=== PATIENT | female | born 1960 | race Two or more races ===

== ENCOUNTER → 2023-02-16 | Outpatient (CLI) | payer BC ==
[~2023-02-16] MED LIST: ALBUTEROL SULF 2.5 MG/0.5ML(0.5%) NEB SOLN ONE
== END | disposition home or self-care (01) ==
LOC: RT 10:19
PROVIDERS: ATTEND Internal Medicine Pulmonary Disease
DX: R06.02 Shortness of breath (principal)
CPT/HCPCS: 94060; 94727; 94729

== ENCOUNTER 2024-10-19 03:05 | Inpatient (IN) | payer MEDICARE, BC ==
[~2024-10-19] VITALS: Ht 167.6 cm; Wt 103.5 kg
--- NOTE | 2024-10-19 03:31 | ED.PDOC ---
GI ASSESSMENT HPI Comments 64-year-old female who came to emergency room for abdominal pain. Patient states she is constipated, last bowel movement was over 2 days ago, described as scanty and hard. Yesterday she started having constant, aching periumbilical abdominal pain, associated with bouts of nausea and vomiting, unable to keep an ything in. States she has not been able to pass any gas as well. She is status post hysterectomy. Chief Complaint: Abdominal pain Time Seen by MD: 03:30 Reviewed Notes: Nurses Notes Allergies: Coded Allergies: Codeine (Verified Allergy, Unknown, 10/19/24) Home Meds Reported Medications Atenolol (Atenolol) 25 Mg Tab, 1 TAB PO DAILY 10/19/24 Levothyroxine Sodium (Levothyroxine Sodium) 125 Mcg Tab, 1 TAB PO DAILY 10/19/24 Information Source: Patient, Spouse Mode of Arrival: Ambulatory Timing: Hours Duration: Since onset Quality: Aching Vomitus: Watery Stool: Impaction Severity: Moderate Recent: None Recent Hx of: Abdominal Surgery Pain Location: Periumbilical Associated sign and symptoms: Nausea, Vomiting, Constipation, Abdominal Pain Review of Systems REVIEW OF SYSTEMS: No fever, no chills, or fatigue HEENT: No sore throat, no earache, no congestion, no neck pain. Cardiac: No chest pain. No palpitations. Lungs: No shortness of breath, no cough. GI: (+) nausea, (+) vomiting, no diarrhea, (+) constipation, (+) abdominal pain : No dysuria, frequency, or urgency. No hematuria. Musculoskeletal: No joint pain , no joint swelling, no extremity edema. Skin: No rash, no itching. Neuro: No headache, no dizziness, no weakness Vital Signs Vital Signs Date Time Temp Pulse Resp B/P (MAP) Pulse Ox O2 Delivery O2 Flow Rate FiO2 10/19/24 07:36 86 17 96 Room Air 10/19/24 07:36 98.7 143/64 (90) 98.7 10/19/24 05:24 0 21 Physical Exam General: Awake, alert and oriented. No acute distress. Skin: Skin in warm, dry and intact. Appropriate color for ethnicity. Nailbeds pink with no cyanosis. HEENT: The head is normocephalic and atraumatic. Conjunctivae are clear without exudates or hemorrhage. Sclera is non-icteric. EOM are intact. No signs of nystagmus. Eyelids are normal in appearance without swelling or lesions. Oral mucosa is pink and moist Neck: The neck is supple with normal range of motion. No JVD. Cardiac: Heart rate and rhythm are normal. No murmurs, gallops, or rubs are auscultated. Respiratory: No signs of respiratory distress. Lung sounds are clear in all lobes bilaterally without rales, rhonchi, or wheezes. Abdominal: Abdomen is soft, generally-tender without distention, guarding or rigidity. Bowel sounds are present and normoactive in all four quadrants. Extremities: Upper and lower extremities are atraumatic in appearance without deformity or edema. Neurological: The patient is awake, alert and oriented to person, place, and time with normal speech. Speech is clear. There is no facial asymmetry. Psychiatric: Appropriate mood and affect. Good judgement and insight. No visual or auditory hallucinations. Past Medical History PAST MEDICAL HISTORY: HTN, Thyroid Surgical History: Hysterectomy INSIGHTS ANALYST History: Denies all INSIGHTS ANALYST Hx Family History Family History: Reviewed,noncontributory to illness Social History Smoker: Non-Smoker Alcohol: Denies ETOH Use Drugs: Denies Drug Use Lives In: Home Was a procedure done? Was a procedure done?: No GI differential Dx Differential Diagnosis: Bowel Obstruction, Constipation, Diverticular disease, Gastritis/PUD, Gastroenteritis, UTI, Urolithiasis, Other X-Ray, Labs, Meds, VS Vital Signs Date Time Temp Pulse Resp B/P (MAP) Pulse Ox O2 Delivery O2 Flow Rate FiO2 10/19/24 07:36 86 17 96 Room Air 10/19/24 07:36 98.7 86 17 143/64 (90) 96 98.7 10/19/24 05:39 94 16 142/49 10/19/24 05:24 88 16 97 Room Air* 0 21 10/19/24 05:24 88 16 97 Room Air* 0 21 10/19/24 05:09 88 16 131/65 10/19/24 04:56 99.8 88 16 131/65 (87) 97 99.8 10/19/24 03:55 98.3 92 20 152/71 (98) 92 98.3 Lab Test 10/19/24 03:52 6/20/25 03:25 10/19/24 00:00 Range/Units Lactic Acid Level 1.9 0.4-2.0 mmol/L White Blood Count 16.9 H 4.4-10.8 10^3/uL Red Blood Count 5.37 H 4.0-5.20 10^6/uL Hemoglobin 14.8 12.2-16.2 g/dL Hematocrit 43.4 36.0-46.0 % Mean Corpuscular Volume 80.8 80.0-100.0 fL Mean Corpuscular Hemoglobin 27.5 L 28.0-32.0 pg Mean Corpuscular Hemoglobin Concent 34.0 32.0-36.0 g/dL Red Cell Distribution Width 13.1 11.8-14.3 % Platelet Count 228 140-450 10^3/uL Mean Platelet Volume 8.3 6.9-10.8 fL Neutrophils (%) (Auto) 90.2 H 37.0-80.0 % Lymphocytes (%) (Auto) 4.3 L 10.0-50.0 % Monocytes (%) (Auto) 5.3 0.0-12.0 % Eosinophils (%) (Auto) 0.0 0.0-7.0 % Basophils (%) (Auto) 0.2 0.0-2.0 % Neutrophils # (Auto) 15.2 H 1.6-8.6 10 ^3/uL Lymphocytes # (Auto) 0.7 0.4-5.4 10 ^3/uL Monocytes # (Auto) 0.9 0-1.3 10 ^3/uL Eosinophils # (Auto) 0 0-0.8 10 ^3/uL Basophils # (Auto) 0 0-0.2 10 ^3/uL Nucleated Red Blood Cells 0.0 % Sodium Level 140 136-145 mmol/L Potassium Level 3.8 3.5-5.1 mmol/L Chloride Level 105 98-107 mmol/L Carbon Dioxide Level 24 20-31 mmol/L Anion Gap 11 5-15 Blood Urea Nitrogen 10 9-23 mg/dL Creatinine 0.72 0.550-1.02 mg/dL Glomerular Filtration Rate Calc 93 >90 mL/min BUN/Creatinine Ratio 13.9 10.0-20.0 Serum Glucose 211 H 74-106 mg/dL Hemoglobin A1c 5.8 H <5.7 % A1C Calcium Level 9.9 8.7-10.4 mg/dL Total Bilirubin 1.0 0.2-1.0 mg/dL Aspartate Amino Transferase (AST) 17 <34 U/L Alanine Aminotransferase (ALT) 26 7-40 U/L Alkaline Phosphatase 98 46-116 U/L Total Protein 7.6 5.7-8.2 g/dL Albumin 5.0 H 3.2-4.8 g/dL Amylase Level 34 30-118 U/L Lipase 26 12-53 U/L Urine Color Yellow Yellow Urine Clarity Clear Clear Urine pH 5.5 5.0-9.0 Urine Specific [place] > 1.050 H 1.001-1.035 Urine Protein Trace H Negative Urine Ketones 1+ H Negative Urine Blood Negative Negative /uL Urine Nitrite Negative Negative Urine Bilirubin Negative Negative Urine Urobilinogen Normal Negative mg/dL Urine Leukocyte Esterase Negative Negative /uL Urine RBC 1 0 - 4 /hpf Urine Microscopic WBC 2 0-5 /HPF Urine Squamous Epithelial Cells Few <5 /hpf Urine Bacteria None seen None Seen /hpf Urine Mucus Few None Seen Urine Glucose Trace Normal mg/dL Urine Test Negative Negative Current Medications Medications (Trade) Dose Ordered Sig/Samantha Route Start Time Stop Time Status Last Admin Sodium Chloride 1,000 ml @ 1,000 mls/hr Q1H ONCE IV 10/19/24 03:45 10/19/24 04:44 DC 10/19/24 04:51 Ondansetron HCl (Zofran) 4 mg ONCE ONCE IV 10/19/24 03:45 10/19/24 03:46 DC 10/19/24 04:53 Morphine Sulfate 2 mg ONCE ONCE IV 10/19/24 05:00 10/19/24 05:01 DC 10/19/24 05:09 Metronidazole 100 ml @ 100 mls/hr ONCE ONCE IV 10/19/24 05:45 10/19/24 06:44 DC 10/19/24 05:40 Levofloxacin/ Dextrose 100 ml @ 100 mls/hr ONCE ONCE IV 10/19/24 05:45 10/19/24 06:44 DC 10/19/24 06:52 Sodium Chloride 1,000 ml @ 1,000 mls/hr Q1H ONCE IV 10/19/24 07:00 10/19/24 07:59 DC 10/19/24 08:03 Ondansetron HCl (Zofran) 4 mg ONCE ONCE IV 10/19/24 07:00 10/19/24 07:09 DC 10/19/24 07:42 Time of 1ST Reevaluation: 03:24 Reevaluation 1ST: Unchanged Patient Education/Counseling: Prognosis Family Education/Counseling: Prognosis SEPSIS Sepsis Screen Physician Orders Ct Ab Pel With Iv Con Only (10/19/24 03:37) Gallbladder (10/19/24 08:57) Vital Signs Date Time Temp Pulse Resp B/P (MAP) Pulse Ox O2 Delivery O2 Flow Rate FiO2 10/19/24 07:36 86 17 96 Room Air 10/19/24 07:36 98.7 86 17 143/64 (90) 96 98.7 10/19/24 05:39 94 16 142/49 10/19/24 05:24 88 16 97 Room Air* 0 21 10/19/24 05:24 88 16 97 Room Air* 0 21 10/19/24 05:09 88 16 131/65 10/19/24 04:56 99.8 88 16 131/65 (87) 97 99.8 10/19/24 03:55 98.3 92 20 152/71 (98) 92 98.3 Laboratory Tests Test 10/19/24 03:25 10/19/24 03:52 White Blood Count 16.9 10^3/uL (4.4-10.8) H Lactic Acid Level 1.9 mmol/L (0.4-2.0) Medications Medications Dose Ordered Sig/Samantha Route Start Time Stop Time Status Last Admin Dose Admin Ondansetron HCl 4 mg ONCE ONCE IV 10/19/24 07:00 10/19/24 07:09 DC 10/19/24 07:42 Sodium Chloride 1,000 ml @ 1,000 mls/hr Q1H ONCE IV 10/19/24 07:00 10/19/24 07:59 DC 10/19/24 08:03 Departure 1 Departure Time of Disposition: 05:32 Impression: Primary Impression: Nausea & vomiting Additional Impressions: Leukocytosis Intractable abdominal pain Acute cholecystitis Disposition: ADMITTED INPATIENT Condition: Stable Comments 64-year-old female who presented with nausea, vomiting, abdominal pain. Patient is still reporting significant abdominal pain and nausea after treatment in the ED. Patient admitted to hospitalist service for further treatment, evaluation and monitoring. CT scan concerning for acute cholecystitis. Antibiotics initiated in the [facility] department. Stat Consultation with general surgery placed in the emergency department. Extensive evaluation was performed in attempt to identify or rule out: (See differential diagnosis section) The following tests were ordered, and results were reviewed by me and discussed with patient: (See diagnostic results section) The following test were independently interpreted by me: N/A I reviewed and agreed with the following test results read by other providers: N/A I reviewed the following notes from the pt's past medical encounters: N/A Additional information was gathered from interviewing the following independent historians: Patient's at bedside Discussion of management or test interpretation with external physician/other qualified health medical care administrator: N/A Decision regarding hospitalization or escalation of hospital level of care: Risk and benefits of admission for further treatment of patient's condition was considered. Due to patient's current clinical condition, high risk of decline and poor outcome if discharged and need for further inpatient management and monitoring, patient will be admitted to the hospital. Discussed with patient. Drug therapy requiring intensive monitoring for toxicity: N/A Parenteral controlled substances: IV morphine Decision regarding elective major surgery with identified patient or procedure risk factors: N/A Decision regarding emergency major surgery: N/A Decision not to resuscitate or to de-escalate care because of poor prognosis: N/A Diagnosis or treatment significantly limited by social determinants of health: N/A Critical Care Note Critical Care Time?: No Stability Stability form required: No Heart Score Heart Score: Heart Score Response (Comments) Value History N/A 0 EKG N/A 0 Age N/A 0 Risk Factors N/A 0 Troponin N/A 0 Total 0 I personally scribed for CATIA CHASE MD ([email or web address]) on 10/19/24 at 03:31. Electronically submitted by Herbie Low ([email or web address]). CATIA CHASE MD Oct 19, 2024 03:31
[2024-10-19 03:49] LABS: Basophils # (auto) 0 10 ^3/uL (0-0.2); Basophils % (auto) 0.2 % (0.0-2.0); Eosinophils # (auto) 0 10 ^3/uL (0-0.8); Hematocrit 43.4 % (36.0-46.0); Hemoglobin 14.8 g/dL (12.2-16.2); Lymphocytes # (auto) 0.7 10 ^3/uL (0.4-5.4); Lymphocytes % (auto) 4.3 % (10.0-50.0); Mean Corpuscular Hemoglobin 27.5 pg (28.0-32.0); Mean Corpuscular Volume 80.8 fL (80.0-100.0); Monocytes # (auto) 0.9 10 ^3/uL (0-1.3); Monocytes % (auto) 5.3 % (0.0-12.0); Neutrophils # (auto) 15.2 10 ^3/uL (1.6-8.6); Neutrophils % (auto) 90.2 % (37.0-80.0); Platelet Count (auto) 228 10^3/uL (140-450); Red Blood Cells 5.37 10^6/uL (4.0-5.20); Red Cell Distribution Width 13.1 % (11.8-14.3); White Blood Cell 16.9 10^3/uL (4.4-10.8)
[2024-10-19 04:01] LABS: Alanine Aminotransferase 26 U/L (7-40); Alkaline Phosphatase 98 U/L (46-116); Anion Gap 11 (5-15); Aspartate Aminotransferase 17 U/L (<34); BUN/Creatinine Ratio 13.9 (10.0-20.0); Blood Urea Nitrogen 10 mg/dL (9-23); Calcium 9.9 mg/dL (8.7-10.4); Carbon Dioxide 24 mmol/L (20-31); Chloride 105 mmol/L (98-107); Lipase 26 U/L (12-53); Potassium 3.8 mmol/L (3.5-5.1); Sodium 140 mmol/L (136-145); Total Protein 7.6 g/dL (5.7-8.2)
[2024-10-19 04:02] LABS: Glucose 211 mg/dL (74-106)
[2024-10-19] MEDS: SODIUM CHLORIDE 0.9% 1,000 ML IV ONE ×2 (04:51→08:03)
[2024-10-19] MEDS: ONDANSETRON HCL 4 MG/2 ML VIAL IV ONE ×2 (04:53→07:42)
[2024-10-19] MEDS: MORPHINE SULFATE INJ 2 MG/ml SYRG IV ONE (05:09)
[2024-10-19] MEDS: IOHEXOL 300 MG/ML 100ML BOTTLE IJ ONE (05:10)
[2024-10-19 05:24] VITALS: PULSE 88; RESP 16; O2SAT 97
--- NOTE | 2024-10-19 05:35 | DVH ---
EXAM: CT Abdomen and Pelvis With Intravenous Contrast CLINICAL INDICATION: Pain TECHNIQUE: Axial computed tomography images of the abdomen and pelvis with intravenous contrast. Th is CT exam was performed using one or more of the following dose reduction techniques: automated exp osure control, adjustment of the mA and/or kV according to patient size, and/or use of iterative lenin nstruction technique. COMPARISON: No relevant prior studies available. FINDINGS: LUNG BASES: Unremarkable. No mass. No consolidation. ABDOMEN: LIVER: Unremarkable. No mass. GALLBLADDER AND BILE DUCTS: Distended gallbladder apparent pericholecystic fluid and wall thickening presented for acute cholecystitis. Possible small air pocket within the urinary bladder. Emphysema tous acute ascites cannot be excluded. Clinical correlation is recommended. No ductal dilation. PANCREAS: Unremarkable. No mass. No ductal dilation. SPLEEN: Unremarkable. No splenomegaly. ADRENALS: Unremarkable. No mass. KIDNEYS AND URETERS: 4.5 cm simple left renal cysts. No hydronephrosis. STOMACH AND BOWEL: Fecal retention in the colon consistent with constipation. Colonic diverticulosi s without acute diverticulitis. No obstruction. PELVIS: APPENDIX: No findings to suggest acute appendicitis. BLADDER: See above. REPRODUCTIVE: Unremarkable as visualized. ABDOMEN and PELVIS: INTRAPERITONEAL SPACE: See above. BONES/JOINTS: No acute fracture. No dislocation. SOFT TISSUES: Umbilical hernia containing fat. VASCULATURE: Unremarkable. No abdominal aortic aneurysm. LYMPH NODES: Unremarkable. No enlarged lymph nodes. IMPRESSION: 1. Distended gallbladder apparent pericholecystic fluid and wall thickening presented for acute chol ecystitis. Possible small air pocket within the urinary bladder. Emphysematous acute ascites cannot be excluded. Clinical correlation is recommended. 2. Umbilical hernia containing fat. 3. Fecal retention in the colon consistent with constipation. 4. Colonic diverticulosis without acute diverticulitis.
[2024-10-19] MEDS: metroNIDAZOLE 500MG/100ML 100 ML IV ONE (05:40)
[2024-10-19] MEDS: levoFLOXacin 500MG 100 ML IV ONE (06:52)
[2024-10-19] MEDS: MORPHINE SULFATE 4 MG/ML SYR/VIAL IV ONE (07:00)
[2024-10-19] MEDS ORDERED: DEXTROSE (50%) 50ML SYRG IV PRN (09:15)
[2024-10-19] MEDS ORDERED: LEVO125T7 PO (09:16)
[2024-10-19] MEDS ORDERED: ATEN25TA PO (09:16)
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
[2024-10-19] MEDS ORDERED: levoFLOXacin 500MG 100 ML IV SCH (10:00)
--- NOTE | 2024-10-19 10:00 | DVH ---
INDICATION: r/o kevin TECHNIQUE: Multiple real-time sonographic images were obtained of the right upper quadrant. COMPARISON: None FINDINGS: The liver demonstrates homogeneous echotexture without focal mass lesions. The liver measu res 21.2 cm. There is no intrahepatic or extrahepatic ductal dilatation. The common duct measures 0.9 cm. Cholelithiasis The gallbladder wall measures 1.5 cm and is within normal limits. The right kidney measures 11.4 cm. The right kidney is normal in contour, size, and shape. The echoge nicity is normal. There is no hydronephrosis. The pancreas is not well visualized due to overlying bowel gas. IMPRESSION: Hepatomegaly. Cholelithiasis and thickened gallbladder wall. Dilated common bile duct.
[2024-10-19] MEDS: SODIUM CHLORIDE 0.9% 1,000 ML IV SCH (11:14)
[2024-10-19] MEDS: ATENOLOL 25 MG TAB PO SCH (11:18)
[2024-10-19] MEDS: ONDANSETRON HCL 4 MG/2 ML VIAL IV PRN (11:21)
[2024-10-19] MEDS: MORPHINE SULFATE INJ 2 MG/ml SYRG IV PRN (11:28)
[2024-10-19] MEDS: ACCU-CHEK COMFORT CURVE STRIP VI SCH (12:39)
[2024-10-19] MEDS: InsuLIN REG 1unit/0.01ml Soln (100units/ml) SC SCH (13:05)
[2024-10-19] MEDS: PIPERACILLIN-TAZOB 3.375GM 100 ML IV SCH (14:13)
[2024-10-19 15:31] LABS: Urine Bacteria None Seen /hpf (None Seen)
[2024-10-19 15:40] LABS: Urine Blood Negative /uL (Negative); Urine Clarity Clear (Clear); Urine Color Yellow (Yellow); Urine Mucus FEW (None Seen); Urine Protein, UAD TRACE (Negative); Urine Squamous Epithelial Cell FEW /hpf (<5); Urine Urobilinogen Normal (Negative); Urine WBC 2 /HPF (0-5); Urine pH 5.5 (5.0-9.0)
[2024-10-19 15:44] LABS: Urine Specific Gravity > 1.050 (1.001-1.035)
[2024-10-19 18:15] VITALS: BP 147/70; PULSE 78; RESP 17; TEMP 97.8; O2SAT 97
[2024-10-19 18:30] VITALS: PULSE 78; RESP 17; O2SAT 97
[2024-10-19 20:00] VITALS: PULSE 91; RESP 17; O2SAT 94
[2024-10-19 21:00] VITALS: BP 121/45; PULSE 86; RESP 18; TEMP 98.6; O2SAT 91
[2024-10-20] VITALS (8 sets, daily range): BP systolic 113–135; BP diastolic 48–65; PULSE 80–93; RESP 16–20; TEMP 98–99.4; O2SAT 93–94
[2024-10-20 06:47] LABS: Basophils # (auto) 0 10 ^3/uL (0-0.2); Eosinophils # (auto) 0 10 ^3/uL (0-0.8); Hematocrit 40.4 % (36.0-46.0); Hemoglobin 13.5 g/dL (12.2-16.2); Lymphocytes # (auto) 0.6 10 ^3/uL (0.4-5.4); Lymphocytes % (auto) 3.3 % (10.0-50.0); Mean Corpuscular Hemoglobin 27.4 pg (28.0-32.0); Mean Corpuscular Hgb Conc. 33.5 g/dL (32.0-36.0); Mean Corpuscular Volume 81.8 fL (80.0-100.0); Monocytes % (auto) 5.7 % (0.0-12.0); Neutrophils # (auto) 16.5 10 ^3/uL (1.6-8.6); Platelet Count (auto) 169 10^3/uL (140-450); Red Blood Cells 4.94 10^6/uL (4.0-5.20); Red Cell Distribution Width 13.6 % (11.8-14.3); White Blood Cell 18.1 10^3/uL (4.4-10.8)
[2024-10-20 07:02] LABS: Alkaline Phosphatase 116 U/L (46-116); Anion Gap 10 (5-15); BUN/Creatinine Ratio 16.7 (10.0-20.0); Blood Urea Nitrogen 12 mg/dL (9-23); Carbon Dioxide 25 mmol/L (20-31); Chloride 105 mmol/L (98-107); Potassium 3.6 mmol/L (3.5-5.1); Sodium 140 mmol/L (136-145); Total Protein 6.2 g/dL (5.7-8.2)
[2024-10-20 07:05] LABS: Alanine Aminotransferase 203 U/L (7-40); Aspartate Aminotransferase 116 U/L (<34); Bilirubin, Total 1.6 mg/dL (0.2-1.0); Glucose 127 mg/dL (74-106)
[2024-10-20] MEDS: LEVOTHYROXINE SODIUM 100 MCG TAB PO SCH (09:16)
[2024-10-20] MEDS: LEVOTHYROXINE SODIUM 25 MCG TAB PO SCH (09:16)
--- NOTE | 2024-10-20 09:36 | DVH ---
MRI MRCP MRI HISTORY: dilated common bile duct on ultrasound of liver COMPARISON: None PROCEDURE: Multiplanar multisequence MRI images were obtained of the abdomen without intravenous cont rast Additional MIPS were obtained of the biliary system. FINDINGS: Bile ducts: -Intrahepatic ducts: Non-dilated. -Extrahepatic ducts: Non-dilated. -Common bile duct: Non-dilated. -Filling defects: No filling defects -Stricture: None. Gallbladder: Multiple gallstones. Pancreas: Pancreatic duct: No ductal dilatation. Lesions: None. Liver: Signal intensity: Homogenous. Contour: Smooth. Size: Normal. Lesions: No focal liver lesion. ADDITIONAL FINDINGS: Lung base: Right basilar atelectasis is visualized. Pancreas: Normal. Spleen:Normal. Bowel: Normal. Adrenal glands:Normal. Kidneys and ureters: 5.0 cm cyst in the left renal pelvis. Trace bilateral perinephric edema is seen. Lymph nodes: Mildly prominent portal hepatitis lymph nodes likely reactive. Peritoneum:Normal. Vessels: Normal. Abdominal wall: Normal. Bone: No aggressive bone lesions IMPRESSION: Cholelithiasis with pericholecystic edema could be seen with acute cholecystitis. Small defects are s een in the gallbladder wall, clinical correlation for gangrenous cholecystitis. No filling defects to suggest for choledocholithiasis.
[2024-10-20] MEDS: ACETAMINOPHEN 325 MG TAB PO PRN (11:07)
[2024-10-20] MEDS: levoFLOXacin 500MG 100 ML IV SCH (11:07)
--- NOTE | 2024-10-20 12:36 | DVHPN2 ---
Reviewed: Care Plan, H&P, Labs, Medications, Previous Orders, Radiology Changes from previous H/P or p: No Changes Gastrointestinal: Nausea, Vomiting, Abdominal Pain Objective Vitals Vital Signs Date Time Temp Pulse Resp B/P (MAP) Pulse Ox O2 Delivery O2 Flow Rate FiO2 10/20/24 09:17 120/47 10/20/24 09:00 99.4 84 16 93 99.4 10/20/24 08:00 Nasal Cannula* 2 28 Intake/Output Intake and Output 10/20/24 07:00 Intake Total 900 ml Balance 900 ml Intake Oral 0 ml IV Total 900 ml # Voids 2 Medications Current Medications Medications Dose Ordered Sig/Samantha Route Start Time Stop Time Status Last Admin Dose Admin Acetaminophen/ Hydrocodone Bitart 1 tab Q4HP PRN PO 10/19/24 09:15 Ondansetron HCl 4 mg Q4HP PRN IV 10/19/24 09:15 10/19/24 11:21 4 MG Acetaminophen 650 mg Q6HP PRN PO 10/19/24 09:15 10/20/24 11:07 650 MG Morphine Sulfate 2 mg Q4HPRN PRN IV 10/19/24 09:15 10/19/24 21:40 2 MG Diagnostic Test (Pha) 1 strip Q6HR 10/19/24 12:00 10/20/24 11:31 1 STRIP Insulin Human Regular Q6HR SC 10/19/24 12:00 10/20/24 05:27 2 UNITS Dextrose 50 ml UD PRN IV 10/19/24 09:15 Piperacillin Sod/ Tazobactam Sod 100 ml @ 25 mls/hr Q8HR IV 10/19/24 14:00 10/20/24 05:09 25 MLS/HR Atenolol 25 mg DAILY PO 10/19/24 10:00 10/19/24 11:18 25 MG Levothyroxine Sodium 25 mcg DAILY PO 10/20/24 10:00 10/20/24 09:16 25 MCG Levothyroxine Sodium 100 mcg DAILY PO 10/20/24 10:00 10/20/24 09:16 100 MCG Levofloxacin/ Dextrose 100 ml @ 100 mls/hr DAILY IV 10/20/24 10:00 10/20/24 11:07 100 MLS/HR Laboratory Results Laboratory Tests 10/20/24 05:55 Chemistry Test 10/20/24 05:55 Albumin 4.0 g/dL (3.2-4.8) Calcium Level 9.0 mg/dL (8.7-10.4) Total Protein 6.2 g/dL (5.7-8.2) Coagulation Test 10/20/24 11:45 Prothrombin Time Pending Prothrombin Time INR Pending Activated Partial Thromboplast Time Pending LFT Test 10/20/24 05:55 Alanine Aminotransferase (ALT) 203 U/L (7-40) H Alkaline Phosphatase 116 U/L (46-116) Aspartate Amino Transferase (AST) 116 U/L (<34) H Total Bilirubin 1.6 mg/dL (0.2-1.0) H Urinalysis Test 10/19/24 00:00 Urine Color Yellow (Yellow) Urine Clarity Clear (Clear) Urine pH 5.5 (5.0-9.0) Urine Specific [place] > 1.050 (1.001-1.035) Urine Protein Trace (Negative) H Urine Ketones 1+ (Negative) H Urine Blood Negative /uL (Negative) Urine Nitrite Negative (Negative) Urine Bilirubin Negative (Negative) Urine Urobilinogen Normal mg/dL (Negative) Urine Leukocyte Esterase Negative /uL (Negative) Urine RBC 1 /hpf (0 - 4) Urine Microscopic WBC 2 /HPF (0-5) Urine Squamous Epithelial Cells Few /hpf (<5) Urine Bacteria None seen /hpf (None Seen) Urine Mucus Few (None Seen) Urine Glucose Trace mg/dL (Normal) Urine Test Negative (Negative) Labs and/or images reviewed: Labs reviewed by me, Image(s) reviewed by me Assessment/Plan Assessment/Plan Sepsis secondary to cholecystitis: Pilo Banda Acute cholecystitis: Surgical consult by Dr. Ronald Rizzo Acute abdominal pain Hypertension Hypothyroidism Consult for cardiac clearance Acute Dehydration: IV fluids Plan discussed with: Patient Date of Service: Oct 20, 2024 Billing Provider: GERALDINE GASPAR MD Common Visit Codes: [id number] INP/OBS CARE(HIGH) GERALDINE GASPAR MD Oct 20, 2024 12:36
[2024-10-20 12:44] LABS: INR 1.34 (0.9-1.15); Partial Thromboplastin Time 31.5 SEC (24.5-34.5); Prothrombin Time 13.8 sec (9.3-11.8)
[2024-10-20] MEDS: D5W/SOD CHL 0.45%/KCL 20MEQ 1,000 ML IV ONE (13:00)
--- NOTE | 2024-10-20 14:54 | DVH ---
CHEST RADIOGRAPH Indication: PRE OP Technique: Frontal and lateral view of the chest was obtained Comparison: None FINDINGS: Lines and Tubes: None Lungs: Bibasilar subsegmental atelectasis Pleura: No effusion. No pneumothorax. Cardiomediastinal contours: Unremarkable Bones: Unremarkable IMPRESSION: Bibasilar subsegmental atelectasis
[2024-10-20] MEDS: HYDROcodone-ACET 5/325MG TAB PO PRN (16:12)
--- NOTE | 2024-10-20 19:12 | DVHINCON2 ---
Date Seen: Oct 20, [address] Granados Reason for Consultation Cardiac clearance History of Present Illness The patient is a 64 year old female who presented to the emergency department with complaint of intractable abdominal pain associated with nausea and vomiting. She was diagnosed with acute cholecystitis and is being evaluated for possible surgical intervention. Cardiology was consulted for pre operative cardiac clearance. She has a past medical history of hypertension and hypothyroidism. She denies any history of coronary artery disease, congestive heart failure, or arrhythmias. She reports good functional capacity, stating that she is able to walk and climb stairs without experiencing chest pain, shortness of breath, or palpitations. An echocardiogram and 12 lead EKG are planned as part of her pre operative assessment. Past Medical History As stated in HPI Past Surgical History Denies Family History: Cervical cancer G8 MOTHER FH: dementia G8 MOTHER FH: pancreatic cancer G8 FATHER Family member G8 FATHER Family History Reviewed, non-contributory to the management of this case. Social History The patient lives at home, denies smoking, alcohol or illicit drugs abuse. Allergies: Coded Allergies: Codeine (Verified Allergy, Mild, 10/20/24) Patient just gets hyper with it. No rash or any other symptom. Home Meds Reported Medications Atenolol (Atenolol) 25 Mg Tab, 1 TAB PO DAILY 10/19/24 Levothyroxine Sodium (Levothyroxine Sodium) 125 Mcg Tab, 1 TAB PO DAILY 10/19/24 Current Medications Current Medications Medications (Trade) Dose Ordered Sig/Samantha Route PRN Reason Start Time Stop Time Status Last Admin Levothyroxine Sodium (Synthroid Tablet) 25 mcg DAILY PO 10/20/24 10:00 10/20/24 09:16 Levothyroxine Sodium (Synthroid Tablet) 100 mcg DAILY PO 10/20/24 10:00 10/20/24 09:16 Levofloxacin/ Dextrose 100 ml @ 100 mls/hr DAILY IV 10/20/24 10:00 10/20/24 11:07 Review of Systems Constitutional: No symptom reported Ears, Nose, & Throat: No symptom reported Eyes: No symptom reported Neurological: No symptoms reported Pulmonary/Respiratory: Denies shortness of breath, cough, or wheezing Cardiovascular: Denies chest pain, palpitations, orthopnea, paroxysmal no cturnal dyspnea, or peripheral edema. Gastrointestinal: Positive for abdominal pain, nausea, and vomiting Genitourinary: No symptom reported Musculoskeletal: No symptom reported Skin: No symptom reported Psychiatric: No symptom reported Endocrine: No symptom reported Hemotologic/Lymphatic: No symptom reported Vital Signs Vital Signs Date Time Temp Pulse Resp B/P (MAP) Pulse Ox O2 Delivery O2 Flow Rate FiO2 10/20/24 17:05 98.0 80 20 124/48 (73) 94 98.0 10/20/24 08:00 Nasal Cannula* 2 28 Physical Exam INITIAL VITAL SIGNS: Reviewed by me GENERAL: Alert and interactive. In mild distress due to abdominal pain. HEAD: Head is normocephalic and atraumatic. EYES: EOMI, PERRL. No scleral icterus. No conjunctival injection. ENT: Moist mucous membranes. NECK: Supple, No masses, Full range of motion. RESPIRATORY: No tachypnea. Clear breath sounds bilaterally. No wheezing, rales, rhonchi. CV: Regular rate and rhythm, no murmurs, rubs or gallops. No peripheral edema GI/: Tender in the right upper quadrant, INTEGUMENTARY: Warm and dry. No obvious rashes. NEUROLOGIC: Alert and oriented. Face is symmetric. Speech is normal. Moves all extremities equally. Labs/Diagnostic Data Labs Test 10/20/24 17:08 10/20/24 11:45 10/20/24 05:55 10/19/24 03:52 Range/Units POC Glucose 137 H 70-106 mg/dl Prothrombin Time 13.8 H 9.3-11.8 sec Prothrombin Time INR 1.34 H 0.9-1.15 Activated Partial Thromboplast Time 31.5 24.5-34.5 SEC White Blood Count 18.1 H 4.4-10.8 10^3/uL Red Blood Count 4.94 4.0-5.20 10^6/uL Hemoglobin 13.5 12.2-16.2 g/dL Hematocrit 40.4 36.0-46.0 % Mean Corpuscular Volume 81.8 80.0-100.0 fL Mean Corpuscular Hemoglobin 27.4 L 28.0-32.0 pg Mean Corpuscular Hemoglobin Concent 33.5 32.0-36.0 g/dL Red Cell Distribution Width 13.6 11.8-14.3 % Platelet Count 169 140-450 10^3/uL Mean Platelet Volume 8.9 6.9-10.8 fL Neutrophils (%) (Auto) 91.0 H 37.0-80.0 % Lymphocytes (%) (Auto) 3.3 L 10.0-50.0 % Monocytes (%) (Auto) 5.7 0.0-12.0 % Eosinophils (%) (Auto) 0.0 0.0-7.0 % Basophils (%) (Auto) 0.0 0.0-2.0 % Neutrophils # (Auto) 16.5 H 1.6-8.6 10 ^3/uL Lymphocytes # (Auto) 0.6 0.4-5.4 10 ^3/uL Monocytes # (Auto) 1.0 0-1.3 10 ^3/uL Eosinophils # (Auto) 0 0-0.8 10 ^3/uL Basophils # (Auto) 0 0-0.2 10 ^3/uL Nucleated Red Blood Cells 0.0 % Sodium Level 140 136-145 mmol/L Potassium Level 3.6 3.5-5.1 mmol/L Chloride Level 105 98-107 mmol/L Carbon Dioxide Level 25 20-31 mmol/L Anion Gap 10 5-15 Blood Urea Nitrogen 12 9-23 mg/dL Creatinine 0.72 0.550-1.02 mg/dL Glomerular Filtration Rate Calc 93 >90 mL/min BUN/Creatinine Ratio 16.7 10.0-20.0 Serum Glucose 127 H 74-106 mg/dL Calcium Level 9.0 8.7-10.4 mg/dL Total Bilirubin 1.6 H 0.2-1.0 mg/dL Aspartate Amino Transferase (AST) 116 H <34 U/L Alanine Aminotransferase (ALT) 203 H 7-40 U/L Alkaline Phosphatase 116 46-116 U/L Total Protein 6.2 5.7-8.2 g/dL Albumin 4.0 3.2-4.8 g/dL Lactic Acid Level 1.9 0.4-2.0 mmol/L Test 10/19/24 03:25 10/19/24 00:00 Range/Units Hemoglobin A1c 5.8 H <5.7 % A1C Amylase Level 34 30-118 U/L Lipase 26 12-53 U/L Urine Color Yellow Yellow Urine Clarity Clear Clear Urine pH 5.5 5.0-9.0 Urine Specific [place] > 1.050 H 1.001-1.035 Urine Protein Trace H Negative Urine Ketones 1+ H Negative Urine Blood Negative Negative /uL Urine Nitrite Negative Negative Urine Bilirubin Negative Negative Urine Urobilinogen Normal Negative mg/dL Urine Leukocyte Esterase Negative Negative /uL Urine RBC 1 0 - 4 /hpf Urine Microscopic WBC 2 0-5 /HPF Urine Squamous Epithelial Cells Few <5 /hpf Urine Bacteria None seen None Seen /hpf Urine Mucus Few None Seen Urine Glucose Trace Normal mg/dL Urine Test Negative Negative PROCEDURE(s): CXR2 - CHEST TWO VIEWS ROUTINE REASON: PRE OP ORDER NUMBER(s): [id number], ACCESSION NUMBER(s): [id number] CHEST RADIOGRAPH Indication: PRE OP Technique: Frontal and lateral view of the chest was obtained Comparison: None FINDINGS: Lines and Tubes: None Lungs: Bibasilar subsegmental atelectasis Pleura: No effusion. No pneumothorax. Cardiomediastinal contours: Unremarkable Bones: Unremarkable IMPRESSION: Bibasilar subsegmental atelectasis Assessment Preprocedural cardiac evaluation Acute cholecystitis Hypertension Hypothyroidism Plan/Recommendation (Dr. Walker ): * Proceed with 12 lead ECG to assess baseline rhythm and signs of ischemia * Echocardiogram to evaluate cardiac function and rule out structural heart disease If above tests are unremarkable and no further cardiac symptoms develop, she is considered low to moderate cardiac risk and is cleared from cardiology standpoint for surgery. Optimize blood pressure and continue thyroid medication preop rhythm via monitor intra and postoperatively for any cardiac symptoms. This medical document was created using an electronic medical record system with voice recognition software and computerized dictation system. Although this document has been carefully reviewed, there might still be some phonetic and typographical errors. Occasional wrong-word or ``sound-alike substitutions may have occurred due to the inherent limitations of voice recognition software. These areas are purely typographical due to imperfections of the software programs and do not reflect any compromise in the patient's medical care. Please read the chart carefully and recognize, using context, where these substitutions have occurred. Plan discussed with: Patient Plan discussed with: Patient NYHA Physical activity limitations: NA Date of Service: Oct 20, 2024 Billing Provider: KYREE WALKER MD Cardiology Common Codes: CONSULT ONLY Cardiology Consultation Codes: [id number] CONSULT <45MIN [employer]AN[employer] Oct 20, 2024 19:12
--- NOTE | 2024-10-20 22:38 | DVHINCON2 ---
Date Seen: Oct 20, [address] Granados Reason for Consultation Cardiac clearance History of Present Illness This is a 64 year old female with a past medical history of hypertension and hypothyroidism who presented to the emergency department with a complaint of intractable abdominal pain associated with nausea and vomiting. Patient was diagnosed with acute cholecystitis and is being evaluated for possible surgical intervention. Cardiology was consulted for pre operative cardiac clearance. She denies any history of coronary artery disease, congestive heart failure, or arrhythmias. She reports good functional capacity, stating that she is able to walk and climb stairs without experiencing chest pain, shortness of breath, or palpitations. An echocardiogram and 12 lead EKG are planned as part of her pre operative assessment. Past Medical History As stated in HPI Past Surgical History Denies Family History: Cervical cancer G8 MOTHER FH: dementia G8 MOTHER FH: pancreatic cancer G8 FATHER Family member G8 FATHER Allergies: Coded Allergies: Codeine (Verified Allergy, Mild, 10/20/24) Patient just gets hyper with it. No rash or any other symptom. Home Meds Reported Medications Atenolol (Atenolol) 25 Mg Tab, 1 TAB PO DAILY 10/19/24 Levothyroxine Sodium (Levothyroxine Sodium) 125 Mcg Tab, 1 TAB PO DAILY 10/19/24 Current Medications Current Medications Medications (Trade) Dose Ordered Sig/Samantha Route PRN Reason Start Time Stop Time Status Last Admin Levothyroxine Sodium (Synthroid Tablet) 25 mcg DAILY PO 10/20/24 10:00 10/20/24 09:16 Levothyroxine Sodium (Synthroid Tablet) 100 mcg DAILY PO 10/20/24 10:00 10/20/24 09:16 Levofloxacin/ Dextrose 100 ml @ 100 mls/hr DAILY IV 10/20/24 10:00 10/20/24 11:07 Review of Systems Constitutional: No symptom reported Ears, Nose, & Throat: No symptom reported Eyes: No symptom reported Neurological: No symptoms reported Pulmonary/Respiratory: Denies shortness of breath, cough, or wheezing Cardiovascular: Denies chest pain, palpitations, orthopnea, paroxysmal nocturnal dyspnea, or peripheral edema. Gastrointestinal: Positive for abdominal pain, nausea, and vomiting Genitourinary: No symptom reported Musculoskeletal: No symptom reported Skin: No symptom reported Psychiatric: No symptom reported Endocrine: No symptom reported Hemotologic/Lymphatic: No symptom reported Vital Signs Vital Signs Date Time Temp Pulse Resp B/P (MAP) Pulse Ox O2 Delivery O2 Flow Rate FiO2 10/20/24 17:05 98.0 80 20 124/48 (73) 94 98.0 10/20/24 08:00 Nasal Cannula* 2 28 Physical Exam GENERAL: Alert and oriented x 3. No acute distress. EYES: PERRL, EOMI. Anicteric. HENT: Moist mucous membranes. LUNGS: Clear to auscultation bilaterally. CARDIOVASCULAR: Regular rate and rhythm. ABDOMEN:RUQ TTP. EXTREMITIES: No edema. NEUROLOGIC: No focal neurological deficits. SKIN: Warm, dry. Labs/Diagnostic Data Labs Test 10/20/24 17:08 10/20/24 11:45 10/20/24 05:55 10/19/24 03:52 Range/Units POC Glucose 137 H 70-106 mg/dl Prothrombin Time 13.8 H 9.3-11.8 sec Prothrombin Time INR 1.34 H 0.9-1.15 Activated Partial Thromboplast Time 31.5 24.5-34.5 SEC White Blood Count 18.1 H 4.4-10.8 10^3/uL Red Blood Count 4.94 4.0-5.20 10^6/uL Hemoglobin 13.5 12.2-16.2 g/dL Hematocrit 40.4 36.0-46.0 % Mean Corpuscular Volume 81.8 80.0-100.0 fL Mean Corpuscular Hemoglobin 27.4 L 28.0-32.0 pg Mean Corpuscular Hemoglobin Concent 33.5 32.0-36.0 g/dL Red Cell Distribution Width 13.6 11.8-14.3 % Platelet Count 169 140-450 10^3/uL Mean Platelet Volume 8.9 6.9-10.8 fL Neutrophils (%) (Auto) 91.0 H 37.0-80.0 % Lymphocytes (%) (Auto) 3.3 L 10.0-50.0 % Monocytes (%) (Auto) 5.7 0.0-12.0 % Eosinophils (%) (Auto) 0.0 0.0-7.0 % Basophils (%) (Auto) 0.0 0.0-2.0 % Neutrophils # (Auto) 16.5 H 1.6-8.6 10 ^3/uL Lymphocytes # (Auto) 0.6 0.4-5.4 10 ^3/uL Monocytes # (Auto) 1.0 0-1.3 10 ^3/uL Eosinophils # (Auto) 0 0-0.8 10 ^3/uL Basophils # (Auto) 0 0-0.2 10 ^3/uL Nucleated Red Blood Cells 0.0 % Sodium Level 140 136-145 mmol/L Potassium Level 3.6 3.5-5.1 mmol/L Chloride Level 105 98-107 mmol/L Carbon Dioxide Level 25 20-31 mmol/L Anion Gap 10 5-15 Blood Urea Nitrogen 12 9-23 mg/dL Creatinine 0.72 0.550-1.02 mg/dL Glomerular Filtration Rate Calc 93 >90 mL/min BUN/Creatinine Ratio 16.7 10.0-20.0 Serum Glucose 127 H 74-106 mg/dL Calcium Level 9.0 8.7-10.4 mg/dL Total Bilirubin 1.6 H 0.2-1.0 mg/dL Aspartate Amino Transferase (AST) 116 H <34 U/L Alanine Aminotransferase (ALT) 203 H 7-40 U/L Alkaline Phosphatase 116 46-116 U/L Total Protein 6.2 5.7-8.2 g/dL Albumin 4.0 3.2-4.8 g/dL Lactic Acid Level 1.9 0.4-2.0 mmol/L Test 10/19/24 03:25 10/19/24 00:00 Range/Units Hemoglobin A1c 5.8 H <5.7 % A1C Amylase Level 34 30-118 U/L Lipase 26 12-53 U/L Urine Color Yellow Yellow Urine Clarity Clear Clear Urine pH 5.5 5.0-9.0 Urine Specific [place] > 1.050 H 1.001-1.035 Urine Protein Trace H Negative Urine Ketones 1+ H Negative Urine Blood Negative Negative /uL Urine Nitrite Negative Negative Urine Bilirubin Negative Negative Urine Urobilinogen Normal Negative mg/dL Urine Leukocyte Esterase Negative Negative /uL Urine RBC 1 0 - 4 /hpf Urine Microscopic WBC 2 0-5 /HPF Urine Squamous Epithelial Cells Few <5 /hpf Urine Bacteria None seen None Seen /hpf Urine Mucus Few None Seen Urine Glucose Trace Normal mg/dL Urine Test Negative Negative Assessment Preprocedural cardiac evaluation. Acute cholecystitis. Hypertension. Hypothyroidism. Plan/Recommendation I agree with your ongoing assessment and care of plan. Patient has been seen by Cindy Reid NP on my behalf, her and I discussed the plan with the patient. Proceed with 12 lead ECG to assess baseline rhythm and signs of ischemia Echocardiogram to evaluate cardiac function and rule out structural heart disease If above tests are unremarkable and no further cardiac symptoms develop, she is considered low to moderate cardiac risk and is cleared from cardiology standpoint for surgery. Optimize blood pressure and continue thyroid medication preop rhythm via monitor intra and postoperatively for any cardiac symptoms. Additional plan as per the hospital course. Plan discussed with: Patient NYHA Physical activity limitations: NA Date of Service: Oct 20, 2024 Billing Provider: KYREE WALKER MD Cardiology Common Codes: [id number] INP/OBS CARE (High) Cardiology Consultation Codes: [id number] CONSULT <45MIN KYREE WALKER MD Oct 20, 2024 19:15
[2024-10-21] VITALS (7 sets, daily range): BP systolic 115–132; BP diastolic 61–73; PULSE 72–101; RESP 15–18; TEMP 97.6–100.4; O2SAT 93–96
--- NOTE | 2024-10-21 11:37 | DVHPN2 ---
Reviewed: Care Plan, H&P, Labs, Medications, Previous Orders, Radiology Changes from previous H/P or p: No Changes Gastrointestinal: Nausea, Vomiting, Abdominal Pain Objective Vitals Vital Signs Date Time Temp Pulse Resp B/P (MAP) Pulse Ox O2 Delivery O2 Flow Rate FiO2 10/21/24 09:51 98.0 10/21/24 09:00 101 18 125/62 (83) 93 10/21/24 08:00 Nasal Cannula* 2 28 Intake/Output Intake and Output 10/21/24 07:00 Intake Total 1760 ml Balance 1760 ml Intake Oral 560 ml IV Total 1200 ml # Voids 5 Medications Current Medications Medications Dose Ordered Sig/Samantha Route Start Time Stop Time Status Last Admin Dose Admin Acetaminophen/ Hydrocodone Bitart 1 tab Q4HP PRN PO 10/19/24 09:15 10/21/24 08:52 1 TAB Ondansetron HCl 4 mg Q4HP PRN IV 10/19/24 09:15 10/19/24 11:21 4 MG Acetaminophen 650 mg Q6HP PRN PO 10/19/24 09:15 10/21/24 08:51 650 MG Morphine Sulfate 2 mg Q4HPRN PRN IV 10/19/24 09:15 10/21/24 01:52 2 MG Diagnostic Test (Pha) 1 strip Q6HR 10/19/24 12:00 10/21/24 05:23 1 STRIP Insulin Human Regular Q6HR SC 10/19/24 12:00 10/20/24 17:23 2 UNITS Dextrose 50 ml UD PRN IV 10/19/24 09:15 Piperacillin Sod/ Tazobactam Sod 100 ml @ 25 mls/hr Q8HR IV 10/19/24 14:00 10/21/24 05:23 25 MLS/HR Atenolol 25 mg DAILY PO 10/19/24 10:00 10/21/24 08:52 25 MG Levothyroxine Sodium 25 mcg DAILY PO 10/20/24 10:00 10/21/24 08:51 25 MCG Levothyroxine Sodium 100 mcg DAILY PO 10/20/24 10:00 10/21/24 08:51 100 MCG Levofloxacin/ Dextrose 100 ml @ 100 mls/hr DAILY IV 10/20/24 10:00 10/21/24 08:51 100 MLS/HR Laboratory Results Laboratory Tests 10/20/24 05:55 Coagulation Test 10/20/24 11:45 Prothrombin Time 13.8 sec (9.3-11.8) H Prothrombin Time INR 1.34 (0.9-1.15) H Activated Partial Thromboplast Time 31.5 SEC (24.5-34.5) Urinalysis Test 10/19/24 00:00 Urine Color Yellow (Yellow) Urine Clarity Clear (Clear) Urine pH 5.5 (5.0-9.0) Urine Specific [place] > 1.050 (1.001-1.035) Urine Protein Trace (Negative) H Urine Ketones 1+ (Negative) H Urine Blood Negative /uL (Negative) Urine Nitrite Negative (Negative) Urine Bilirubin Negative (Negative) Urine Urobilinogen Normal mg/dL (Negative) Urine Leukocyte Esterase Negative /uL (Negative) Urine RBC 1 /hpf (0 - 4) Urine Microscopic WBC 2 /HPF (0-5) Urine Squamous Epithelial Cells Few /hpf (<5) Urine Bacteria None seen /hpf (None Seen) Urine Mucus Few (None Seen) Urine Glucose Trace mg/dL (Normal) Urine Test Negative (Negative) Labs and/or images reviewed: Labs reviewed by me, Image(s) reviewed by me Assessment/Plan Assessment/Plan Sepsis secondary to cholecystitis: Pilo Banda Acute cholecystitis: Surgical consult for Dr Horta, cardiology consult placed for Dr. Duran for clearance for surgery Acute abdominal pain Hypertension Hypothyroidism Consult for cardiac clearance Acute Dehydration: IV fluids MRCP ruled out any CBD stones or dilatation Echocardiogram result pending Plan discussed with: Patient My Orders Orders - GERALDINE GASPAR MD Procedure Category Date Status Time Communication Order ORDERS 10/20/24 Transmitted 12:46 * Cardiology Consult CONS 10/20/24 Transmitted 13:37 Date of Service: Oct 21, 2024 Billing Provider: GERALDINE GASPAR MD Common Visit Codes: [id number] INP/OBS CARE(HIGH) GERALDINE GASPAR MD Oct 21, 2024 11:37
--- NOTE | 2024-10-21 12:13 | DVHPN2 ---
Progress Note Date Seen: Oct 21, 2024 Medical Necessity Reason Pt with a Central, PICC or Fol: No Objective vital signs Vital Sign Date Time Temp Pulse Resp B/P (MAP) Pulse Ox O2 Delivery O2 Flow Rate FiO2 10/21/24 09:51 98.0 10/21/24 09:00 101 18 125/62 (83) 93 10/21/24 08:00 Nasal Cannula* 2 28 Total Intake and Output 10/20/24 10/20/24 10/21/24 15:00 23:00 07:00 Intake Total 100 ml 1540 ml 120 ml Balance 100 ml 1540 ml 120 ml medications Current Medications Medications Dose Ordered Sig/Samantha Route Start Time Stop Time Status Last Admin Dose Admin Acetaminophen/ Hydrocodone Bitart 1 tab Q4HP PRN PO 10/19/24 09:15 10/21/24 08:52 1 TAB Ondansetron HCl 4 mg Q4HP PRN IV 10/19/24 09:15 10/19/24 11:21 4 MG Acetaminophen 650 mg Q6HP PRN PO 10/19/24 09:15 10/21/24 08:51 650 MG Morphine Sulfate 2 mg Q4HPRN PRN IV 10/19/24 09:15 10/21/24 01:52 2 MG Diagnostic Test (Pha) 1 strip Q6HR 10/19/24 12:00 10/21/24 05:23 1 STRIP Insulin Human Regular Q6HR SC 10/19/24 12:00 10/20/24 17:23 2 UNITS Dextrose 50 ml UD PRN IV 10/19/24 09:15 Piperacillin Sod/ Tazobactam Sod 100 ml @ 25 mls/hr Q8HR IV 10/19/24 14:00 10/21/24 05:23 25 MLS/HR Atenolol 25 mg DAILY PO 10/19/24 10:00 10/21/24 08:52 25 MG Levothyroxine Sodium 25 mcg DAILY PO 10/20/24 10:00 10/21/24 08:51 25 MCG Levothyroxine Sodium 100 mcg DAILY PO 10/20/24 10:00 10/21/24 08:51 100 MCG Levofloxacin/ Dextrose 100 ml @ 100 mls/hr DAILY IV 10/20/24 10:00 10/21/24 08:51 100 MLS/HR laboratory and microbiology Laboratory Tests 10/20/24 05:55 Test 10/20/24 05:55 Range/Units Serum Glucose 127 H 74-106 mg/dL Problem List/Assessment/Plan Problem List/Assessment/Plan 10/21/2563 year old female ,cholelithiasis and cholecystitis, hypothyroid, had hysterectomy, abdomen tender ruq, labs reviewed. undergoing cqardiac evaluation., laparoscopic possibly open cholecystectomy,risks and complications explained in detail Plan discussed with: Patient Dietary Evaluation Review Comments: 1) If patient remains NPO > 7 days, consider EN/TPN to meet at least 75% of estimated needs 2) Advance to 60g CCHO low-fat diet when medically feasible, pending ST approval 3) Refer to outpatient RD for weight management 4) Follow-up with gastroenterology 5) Continue to monitor I&O, labs, and skin integrity Expected Outcomes/Goals: 1) patient to receive nutrition support within 7 days of NPO status 2) GI symptoms and labs to improve 3) diet to advance 4) f/u in 2-3 days MIL IRIZARRY MD Oct 21, 2024 12:13
[2024-10-21] MEDS: PHYTONADIONE (VIT K)10 MG/ML 1ML VIAL SUBCUT ONE (12:49)
--- NOTE | 2024-10-21 13:32 | ECG ---
[facility] Test Date: 2024-10-21 Test Time: 01:18:25 Pat Name: HERB KWONG Department: Room: 0290 B Gender: F Marshmallow Machine Operator: ANN MARIE : 1960 Requested By: SHANNA MORRIS Order Number: [id number] Reading MD: Sg Lerma Measurements Intervals [place] Rate: 85 P: 64 ID: [id number] QRS: -31 QRSD: 104 T: 28 QT: 387 QTc: 461 Interpretive Statements Sinus rhythm Probable left atrial enlargement Left axis deviation Low voltage, precordial leads Electronically Signed On 10-23-2024 22:15:44 PDT by Sg Lerma Please click the below link to view image of tracing.
--- NOTE | 2024-10-21 15:10 | MEDREC ---
[facility] ASP Intervention Section I [facility] ASP Intervention: Duplication of therapy (PLEASE CONSIDER D/C LEVOFLOXACIN (POTENTIAL DUPLICATE THERAPY WITH ZOSYN) ) SARAH CAMPBELL PHARMACIST Oct 21, 2024 15:10
--- NOTE | 2024-10-21 23:47 | DVHPN2 ---
Progress Note - Dictate Date Seen: Oct 21, 2024 Medical Necessity Reason Pt with a Central, PICC or Fol: No Subjective Patient was seen and evaluated in follow up. Patient is on 2 LPM NC. Patient is complaining of generalized pain. BS are WNL. vital signs Vital Sign Date Time Temp Pulse Resp B/P (MAP) Pulse Ox O2 Delivery O2 Flow Rate FiO2 10/21/24 17:00 98.3 78 17 130/73 (92) 94 98.3 10/21/24 08:00 Nasal Cannula* 2 28 Total Intake and Output 10/20/24 10/20/24 10/21/24 15:00 23:00 07:00 Intake Total 100 ml 1540 ml 120 ml Balance 100 ml 1540 ml 120 ml medications Current Medications Medications Dose Ordered Sig/Samantha Route Start Time Stop Time Status Last Admin Dose Admin Acetaminophen/ Hydrocodone Bitart 1 tab Q4HP PRN PO 10/19/24 09:15 10/21/24 17:43 1 TAB Ondansetron HCl 4 mg Q4HP PRN IV 10/19/24 09:15 10/19/24 11:21 4 MG Acetaminophen 650 mg Q6HP PRN PO 10/19/24 09:15 10/21/24 08:51 650 MG Morphine Sulfate 2 mg Q4HPRN PRN IV 10/19/24 09:15 10/21/24 01:52 2 MG Diagnostic Test (Pha) 1 strip Q6HR 10/19/24 12:00 10/21/24 17:43 1 STRIP Insulin Human Regular Q6HR SC 10/19/24 12:00 10/20/24 17:23 2 UNITS Dextrose 50 ml UD PRN IV 10/19/24 09:15 Piperacillin Sod/ Tazobactam Sod 100 ml @ 25 mls/hr Q8HR IV 10/19/24 14:00 10/21/24 14:18 25 MLS/HR Atenolol 25 mg DAILY PO 10/19/24 10:00 10/21/24 08:52 25 MG Levothyroxine Sodium 25 mcg DAILY PO 10/20/24 10:00 10/21/24 08:51 25 MCG Levothyroxine Sodium 100 mcg DAILY PO 10/20/24 10:00 10/21/24 08:51 100 MCG Levofloxacin/ Dextrose 100 ml @ 100 mls/hr DAILY IV 10/20/24 10:00 10/21/24 08:51 100 MLS/HR objective GENERAL: Alert and oriented x 3. No acute distress. EYES: PERRL, EOMI. Anicteric. HENT: Moist mucous membranes. LUNGS: Clear to auscultation bilaterally. CARDIOVASCULAR: Regular rate and rhythm. ABDOMEN:RUQ TTP. EXTREMITIES: No edema. NEUROLOGIC: No focal neurological deficits. SKIN: Warm, dry. laboratory and microbiology Laboratory Tests 10/20/24 05:55 Test 10/20/24 05:55 Range/Units Serum Glucose 127 H 74-106 mg/dL Problem List Preprocedural cardiac evaluation. Acute cholecystitis. Hypertension. Hypothyroidism. Assessment/Plan Continued all current supportive medical care. Morphine and [place] for pain management. IV antibiotics as ordered. Additional plan as per the hospital course. Dietary Evaluation Review Comments: 1) If patient remains NPO > 7 days, consider EN/TPN to meet at least 75% of estimated needs 2) Advance to 60g CCHO low-fat diet when medically feasible, pending ST approval 3) Refer to outpatient RD for weight management 4) Follow-up with gastroenterology 5) Continue to monitor I&O, labs, and skin integrity Expected Outcomes/Goals: 1) patient to receive nutrition support within 7 days of NPO status 2) GI symptoms and labs to improve 3) diet to advance 4) f/u in 2-3 days Plan discussed with: Patient KYREE WALKER MD Oct 21, 2024 20:38
[2024-10-22] VITALS (8 sets, daily range): BP systolic 125–144; BP diastolic 54–75; PULSE 76–98; RESP 14–19; TEMP 97–98.9; O2SAT 90–97
[2024-10-22 06:33] LABS: Basophils # (auto) 0 10 ^3/uL (0-0.2); Basophils % (auto) 0.1 % (0.0-2.0); Eosinophils # (auto) 0 10 ^3/uL (0-0.8); Eosinophils % (auto) 0.3 % (0.0-7.0); Hematocrit 38.5 % (36.0-46.0); Hemoglobin 13.3 g/dL (12.2-16.2); Lymphocytes # (auto) 0.5 10 ^3/uL (0.4-5.4); Lymphocytes % (auto) 3.9 % (10.0-50.0); Mean Corpuscular Hemoglobin 28.1 pg (28.0-32.0); Mean Corpuscular Hgb Conc. 34.6 g/dL (32.0-36.0); Mean Corpuscular Volume 81.2 fL (80.0-100.0); Monocytes # (auto) 1.1 10 ^3/uL (0-1.3); Monocytes % (auto) 7.7 % (0.0-12.0); Neutrophils # (auto) 12.2 10 ^3/uL (1.6-8.6); Platelet Count (auto) 164 10^3/uL (140-450); Red Blood Cells 4.74 10^6/uL (4.0-5.20); Red Cell Distribution Width 13.8 % (11.8-14.3); White Blood Cell 13.9 10^3/uL (4.4-10.8)
[2024-10-22 06:45] LABS: INR 1.25 (0.9-1.15)
[2024-10-22 06:50] LABS: Albumin 3.5 g/dL (3.2-4.8); Anion Gap 9 (5-15); BUN/Creatinine Ratio 16.4 (10.0-20.0); Blood Urea Nitrogen 12 mg/dL (9-23); Calcium 9.4 mg/dL (8.7-10.4); Carbon Dioxide 26 mmol/L (20-31); Chloride 106 mmol/L (98-107); Glucose 95 mg/dL (74-106); Sodium 141 mmol/L (136-145); Total Protein 5.8 g/dL (5.7-8.2)
[2024-10-22 06:53] LABS: Alanine Aminotransferase 128 U/L (7-40); Alkaline Phosphatase 307 U/L (46-116); Aspartate Aminotransferase 52 U/L (<34); Bilirubin, Total 1.8 mg/dL (0.2-1.0); Potassium 3.4 mmol/L (3.5-5.1)
--- NOTE | 2024-10-22 09:34 | DVHSR ---
APPROVED REPORT EXAM: Two-dimensional and M-mode echocardiogram with Doppler and color Doppler. Blood Pressure: 125/62 mmHg INDICATION Pre-Op RISK FACTORS Obesity: Height: 5' 6", Weight: 224 DIMENSIONS LVDd4.6 (3.8-5.7cm)LA (2D)3.8 (1.9-4.0cm)Aortic Root3.0 (2.0-3.7cm) LVDs3.3 (2.5-4.0cm)LA (MM) (1.9-4.0cm)Aortic Cusp Exc1.6 (1.5-2.0cm) EF (%) 55.0 (55-70%)Rt. Atrium3.5 (1.9-4.0cm)Asc. Aorta cm IVSd1.1 (0.7-1.1cm)RV (D) (1.8-2.4cm) PWd1.0 (0.7-1.1cm) Mitral Valve MitralMitral Stenosis E wave0.90m/sMV Mean GR.mmHg A wave0.90m/sMV Peak GR.mmHg E/A ratio1.02D MVAcm2 Aortic Valve Aortic ValveAortic Stenosis V10.90m/Gracie Mean GR.4mmHg V21.40m/Gracie Peak GR.8mmHg LVOT Diameter2.1 (1.8-2.4cm)Doppler AVA2.23cm2 Pulmonic Valve V20.50m/s Tricuspid Valve TR Velocity3.00m/s [id number] Conclusion MILDLVH AND MILD LV DIASTOLIC DYSFUNCTION LV EF IS 65% AND IS NORMAL RVSP IS 41 MM OF HG AND IS HIGH MILD PULMONARY HYPERTENSION GROSSLY NORMAL VALVES NO EFFUSION
[2024-10-22] MEDS: Lidocaine/Epinephrine 1%-1:100,000 30ML VL ONE (12:09)
[2024-10-22] MEDS: BUPIVACAINE 0.5% P/F INJ 10 ML VIAL ONE (12:09)
[2024-10-22] MEDS ORDERED: MORPHINE SULFATE 4 MG/ML SYR/VIAL IV PRN (12:15)
[2024-10-22] MEDS ORDERED: MORPHINE SULFATE INJ 2 MG/ml SYRG IV PRN (12:15)
[2024-10-22] MEDS ORDERED: HYDROmorphone HCL 2 MG/ML VL/or syr IV PRN ×2 (12:15)
[2024-10-22] MEDS: KETOROLAC TROMETH 30 MG/ML 1ML VIAL IV ONE (12:15)
[2024-10-22] MEDS: METOCLOPRAMIDE HCL 5MG/ml INJ 2ml VIAL IV ONE (12:15)
[2024-10-22] MEDS ORDERED: MIDAZOLAM HCL 2MG/2ML 2ml VIAL (1mg/ml) ONE (12:23)
[2024-10-22] MEDS ORDERED: SODIUM CHLORIDE LOCK 10 ML ONE (12:23)
[2024-10-22] MEDS ORDERED: fentaNYL CITRATE 100 MCG/2 ML VL ONE (12:23)
[2024-10-22] MEDS ORDERED: LIDOCAINE HCL 2% TOP JELLY 5ML TOP ONE (12:23)
[2024-10-22] MEDS ORDERED: KETAMINE 50mg/ML 1ml syringe ONE (12:23)
[2024-10-22] MEDS ORDERED: LIDOCAINE 1% INJ PF 5ML AMP ONE (12:23)
[2024-10-22] MEDS ORDERED: PROPOFOL 10 MG/ML 20 ML IV ONE ×2 (12:23→12:40)
[2024-10-22] MEDS ORDERED: HYDROmorphone HCL 2 MG/ML VL/or syr ONE (12:24)
[2024-10-22] MEDS ORDERED: SUGAMMADEX 200mg/2ml Vial (100MG/ML) IV ONE (13:16)
[2024-10-22] MEDS: POVIDONE IODINE 10 % TOPICAL OINT 30GM TOP ONE (13:30)
[2024-10-22] MEDS ORDERED: SUCCINYLCHOLINE CHLORIDE 20 MG/ML 10ML VIAL IV ONE (13:32)
--- NOTE | 2024-10-22 13:39 | DVHPN2 ---
Reviewed: Care Plan, H&P, Labs, Medications, Previous Orders, Radiology Changes from previous H/P or p: No Changes Gastrointestinal: Nausea, Vomiting, Abdominal Pain Objective Vitals Vital Signs Date Time Temp Pulse Resp B/P (MAP) Pulse Ox O2 Delivery O2 Flow Rate FiO2 10/22/24 08:38 98.1 76 17 125/66 (85) 96 98.1 10/22/24 08:00 Nasal Cannula* 2 28 Intake/Output Intake and Output 10/22/24 07:00 Intake Total 700 ml Balance 700 ml Intake Oral 300 ml IV Total 400 ml # Voids 3 Medications Current Medications Medications Dose Ordered Sig/Samantha Route Start Time Stop Time Status Last Admin Dose Admin Acetaminophen/ Hydrocodone Bitart 1 tab Q4HP PRN PO 10/19/24 09:15 10/22/24 00:54 1 TAB Ondansetron HCl 4 mg Q4HP PRN IV 10/19/24 09:15 10/19/24 11:21 4 MG Acetaminophen 650 mg Q6HP PRN PO 10/19/24 09:15 10/21/24 08:51 650 MG Morphine Sulfate 2 mg Q4HPRN PRN IV 10/19/24 09:15 10/21/24 01:52 2 MG Diagnostic Test (Pha) 1 strip Q6HR 10/19/24 12:00 10/22/24 05:26 1 STRIP Insulin Human Regular Q6HR SC 10/19/24 12:00 10/20/24 17:23 2 UNITS Dextrose 50 ml UD PRN IV 10/19/24 09:15 Piperacillin Sod/ Tazobactam Sod 100 ml @ 25 mls/hr Q8HR IV 10/19/24 14:00 10/22/24 05:25 25 MLS/HR Atenolol 25 mg DAILY PO 10/19/24 10:00 10/21/24 08:52 25 MG Levothyroxine Sodium 25 mcg DAILY PO 10/20/24 10:00 10/21/24 08:51 25 MCG Levothyroxine Sodium 100 mcg DAILY PO 10/20/24 10:00 10/21/24 08:51 100 MCG Levofloxacin/ Dextrose 100 ml @ 100 mls/hr DAILY IV 10/20/24 10:00 10/21/24 08:51 100 MLS/HR Morphine Sulfate 2 mg Q4H PRN IV 10/22/24 12:15 10/22/24 16:16 Morphine Sulfate 1 mg Q30M PRN IV 10/22/24 12:15 10/22/24 14:16 Laboratory Results Laboratory Tests 10/22/24 05:59 Chemistry Test 10/22/24 05:59 Albumin 3.5 g/dL (3.2-4.8) Calcium Level 9.4 mg/dL (8.7-10.4) Total Protein 5.8 g/dL (5.7-8.2) Coagulation Test 10/22/24 05:59 Prothrombin Time 13.0 sec (9.3-11.8) H Prothrombin Time INR 1.25 (0.9-1.15) H Activated Partial Thromboplast Time 30.0 SEC (24.5-34.5) LFT Test 10/22/24 05:59 Alanine Aminotransferase (ALT) 128 U/L (7-40) H Alkaline Phosphatase 307 U/L (46-116) H Aspartate Amino Transferase (AST) 52 U/L (<34) H Total Bilirubin 1.8 mg/dL (0.2-1.0) H Urinalysis Test 10/19/24 00:00 Urine Color Yellow (Yellow) Urine Clarity Clear (Clear) Urine pH 5.5 (5.0-9.0) Urine Specific [place] > 1.050 (1.001-1.035) Urine Protein Trace (Negative) H Urine Ketones 1+ (Negative) H Urine Blood Negative /uL (Negative) Urine Nitrite Negative (Negative) Urine Bilirubin Negative (Negative) Urine Urobilinogen Normal mg/dL (Negative) Urine Leukocyte Esterase Negative /uL (Negative) Urine RBC 1 /hpf (0 - 4) Urine Microscopic WBC 2 /HPF (0-5) Urine Squamous Epithelial Cells Few /hpf (<5) Urine Bacteria None seen /hpf (None Seen) Urine Mucus Few (None Seen) Urine Glucose Trace mg/dL (Normal) Urine Test Negative (Negative) Labs and/or images reviewed: Labs reviewed by me, Image(s) reviewed by me Assessment/Plan Assessment/Plan Sepsis secondary to cholecystitis: Pilo Flanaganaquin, patient getting lap kevin today by Acute cholecystitis: Surgical consult for Dr Horta, cardiology consult placed for Dr. Duran for clearance for surgery Acute abdominal pain Hypertension Hypothyroidism Consult for cardiac clearance Acute Dehydration: IV fluids MRCP ruled out any CBD stones or dilatation Plan discussed with: Patient Date of Service: Oct 22, 2024 Billing Provider: GERALDINE GASPAR MD Common Visit Codes: [id number] INP/OBS CARE(HIGH) GERALDINE GASPAR MD Oct 22, 2024 13:39
--- NOTE | 2024-10-22 16:14 | DVHOP ---
DATE OF SURGERY: 10/22/2024 PREOPERATIVE DIAGNOSES: * Cholelithiasis. * Cholecystitis. POSTOPERATIVE DIAGNOSES: * Cholelithiasis. * Cholecystitis. SURGEON: Maurizio Horta MD. MECHANICAL ENGINEER: Bowen cooper. ANESTHESIA: General endotracheal. ANESTHESIOLOGIST: Dr. Romeo. PROCEDURE: Laparoscopy, laparoscopic cholecystectomy. DESCRIPTION OF PROCEDURE: Under general endotracheal anesthesia with the patient's skin prepped and draped, a supraumbilical incision was made and a Veress needle inserted by the hanging drop technique to establish pneumoperitoneum to 15 mmHg of pressure by insufflation with carbon dioxide. With the abdomen fully distended, the needle was removed and replaced with a 5 mm trocar port through which a 0-degree viewing laparoscope was inserted and under direct vision, a 5 mm port was inserted through the anterior axillary line at the level of the umbilicus on the right flank and a 10 mm port inserted through the subxiphoid midline skin. Instrumentation was introduced and laparoscopy was performed. Laparoscopy revealed no obvious unexpected pathology; however, it was hampered by the patient's morbid obesity. The gallbladder was affected by acute cholecystitis with patchy areas of necrosis. There was a huge amount of inflammatory tissue and the omentum was plastered onto the gallbladder and the liver. Blunt and sharp dissection had to be utilized in order to mobilize the omentum out of the way and to visualize the gallbladder. The gallbladder was densely distended and it was aspirated of inspissated bile, which was submitted for cultures and sensitivities. Subsequently, the gallbladder was placed on tension. The cystic duct and cystic artery were identified, circumferentially dissected, skeletonized, and traced into the hepatocystic triangle system to minimize the potential for inadvertent injury to the common bile duct. The cystic duct and cystic artery were then divided between metallic strips close to the gallbladder again attempting to avoid injury to the common bile duct. The gallbladder was then resected from its liver bed. It had a very thick inflammatory rind around it which had numerous large vessels which had to be controlled. However, no significant bleeding occurred. The gallbladder was then placed onto the omentum and was longitudinally opened in order to facilitate removal. Numerous huge stones were removed from the gallbladder separately. The gallbladder was then placed into a specimen extraction bag and retrieved from the peritoneal cavity through the 10 mm port site. Subsequently, the right upper quadrant was profusely irrigated and inspected for hemostasis, which was found to be complete. At the time of termination of the operation, there was no evidence of bleeding from either the gallbladder bed or from the port sites. Instrumentation was withdrawn. Pneumoperitoneum was evacuated. Fascial defect closed using #0 Vicryl. Skin approximated using metallic skin melchor. The patient remained stable throughout the procedure, left the operating room following an accurate needle and sponge count. Her friend, Rush, was thoroughly informed by phone at [phone]. Maurizio Horta MD PF/LISA TID: [id number] RECEIPT: [id number]
--- NOTE | 2024-10-22 22:53 | DVHPN2 ---
Progress Note - Dictate Date Seen: Oct 22, 2024 Medical Necessity Reason Pt with a Central, PICC or Fol: No Subjective Patient was seen and evaluated in follow up. Patient is on 2 LPM NC. Patient underwent laparoscopy, laparoscopic cholecystectomy with Dr. Horta, tolerated procedure well. WBC 13.9, K 3.4, AST 52, ALT 128, ALK PHOS 307. vital signs Vital Sign Date Time Temp Pulse Resp B/P (MAP) Pulse Ox O2 Delivery O2 Flow Rate FiO2 10/22/24 21:00 97.0 77 19 143/75 (97) 96 97.0 10/22/24 14:15 Nasal Cannula 2.0 95 Total Intake and Output 10/21/24 10/21/24 10/22/24 15:00 23:00 07:00 Intake Total 200 ml 100 ml 400 ml Balance 200 ml 100 ml 400 ml medications Current Medications Medications Dose Ordered Sig/Samantha Route Start Time Stop Time Status Last Admin Dose Admin Acetaminophen/ Hydrocodone Bitart 1 tab Q4HP PRN PO 10/19/24 09:15 10/22/24 21:43 1 TAB Ondansetron HCl 4 mg Q4HP PRN IV 10/19/24 09:15 10/19/24 11:21 4 MG Acetaminophen 650 mg Q6HP PRN PO 10/19/24 09:15 10/21/24 08:51 650 MG Morphine Sulfate 2 mg Q4HPRN PRN IV 10/19/24 09:15 10/21/24 01:52 2 MG Diagnostic Test (Pha) 1 strip Q6HR 10/19/24 12:00 10/22/24 16:53 1 STRIP Insulin Human Regular Q6HR SC 10/19/24 12:00 10/20/24 17:23 2 UNITS Dextrose 50 ml UD PRN IV 10/19/24 09:15 Piperacillin Sod/ Tazobactam Sod 100 ml @ 25 mls/hr Q8HR IV 10/19/24 14:00 10/22/24 21:42 25 MLS/HR Atenolol 25 mg DAILY PO 10/19/24 10:00 10/21/24 08:52 25 MG Levothyroxine Sodium 25 mcg DAILY PO 10/20/24 10:00 10/21/24 08:51 25 MCG Levothyroxine Sodium 100 mcg DAILY PO 10/20/24 10:00 10/21/24 08:51 100 MCG Levofloxacin/ Dextrose 100 ml @ 100 mls/hr DAILY IV 10/20/24 10:00 10/21/24 08:51 100 MLS/HR objective GENERAL: Alert and oriented x 3. No acute distress. EYES: PERRL, EOMI. Anicteric. HENT: Moist mucous membranes. LUNGS: Clear to auscultation bilaterally. CARDIOVASCULAR: Regular rate and rhythm. ABDOMEN:RUQ TTP. EXTREMITIES: No edema. NEUROLOGIC: No focal neurological deficits. SKIN: Warm, dry. laboratory and microbiology Laboratory Tests 10/22/24 05:59 Test 10/22/24 05:59 Range/Units Serum Glucose 95 74-106 mg/dL Problem List Preprocedural cardiac evaluation. Acute cholecystitis. Hypertension. Hypothyroidism. Assessment/Plan Continued all current supportive medical care. Morphine and [place] for pain management. IV antibiotics as ordered. Additional plan as per the hospital course. Dietary Evaluation Review Comments: 1) If patient remains NPO > 7 days, consider EN/TPN to meet at least 75% of estimated needs 2) Advance to 60g CCHO low-fat diet when medically feasible, pending ST approval 3) Refer to outpatient RD for weight management 4) Follow-up with gastroenterology 5) Continue to monitor I&O, labs, and skin integrity Expected Outcomes/Goals: 1) patient to receive nutrition support within 7 days of NPO status 2) GI symptoms and labs to improve 3) diet to advance 4) f/u in 2-3 days Plan discussed with: Patient KYREE WALKER MD Oct 22, 2024 22:53
[2024-10-23] VITALS (8 sets, daily range): BP systolic 115–147; BP diastolic 54–73; PULSE 55–66; RESP 16–20; TEMP 97.1–98.1; O2SAT 92–97
[2024-10-23 07:10] LABS: Basophils # (auto) 0 10 ^3/uL (0-0.2); Basophils % (auto) 0.1 % (0.0-2.0); Eosinophils # (auto) 0 10 ^3/uL (0-0.8); Hematocrit 38.5 % (36.0-46.0); Hemoglobin 13.1 g/dL (12.2-16.2); Lymphocytes # (auto) 0.6 10 ^3/uL (0.4-5.4); Lymphocytes % (auto) 5.3 % (10.0-50.0); Mean Corpuscular Hemoglobin 27.7 pg (28.0-32.0); Mean Corpuscular Volume 81.4 fL (80.0-100.0); Monocytes # (auto) 0.5 10 ^3/uL (0-1.3); Monocytes % (auto) 4.1 % (0.0-12.0); Neutrophils # (auto) 10.5 10 ^3/uL (1.6-8.6); Neutrophils % (auto) 90.5 % (37.0-80.0); Platelet Count (auto) 183 10^3/uL (140-450); Red Blood Cells 4.73 10^6/uL (4.0-5.20); White Blood Cell 11.6 10^3/uL (4.4-10.8)
--- NOTE | 2024-10-23 07:27 | ECG ---
[facility] Test Date: 2024-10-21 Test Time: 01:22:38 Pat Name: HERB KWONG Department: Room: 0290 B Gender: F Crater And Packer: ANN MARIE : 1960 Requested By: GERALDINE GASPAR Order Number: [id number] Reading MD: Sg Lerma Measurements Intervals [place] Rate: 82 P: 65 TN: 148 QRS: -32 QRSD: 101 T: 24 QT: 394 QTc: 461 Interpretive Statements Sinus rhythm Probable left atrial enlargement Left axis deviation Low voltage, precordial leads Electronically Signed On 10-23-2024 22:15:48 PDT by Sg Lerma Please click the below link to view image of tracing.
--- NOTE | 2024-10-23 07:27 | ECG ---
[facility] Test Date: 2024-10-21 Test Time: 01:24:38 Pat Name: HERB KWONG Department: Room: 0290 B Gender: F Manager Contact: ANN MARIE : 1960 Requested By: GERALDINE GASPAR Order Number: [id number] Reading MD: Sg Lerma Measurements Intervals [place] Rate: 84 P: 64 MT: 150 QRS: -34 QRSD: 101 T: -4 QT: 346 QTc: 409 Interpretive Statements Sinus rhythm Probable left atrial enlargement Left axis deviation Low voltage, precordial leads Borderline T abnormalities, diffuse leads Electronically Signed On 10-23-2024 22:15:54 PDT by Sg Lerma Please click the below link to view image of tracing.
--- NOTE | 2024-10-23 13:12 | DVHPN2 ---
Reviewed: Care Plan, H&P, Labs, Medications, Previous Orders, Radiology Changes from previous H/P or p: No Changes Gastrointestinal: Nausea, Vomiting, Abdominal Pain Objective Vitals Vital Signs Date Time Temp Pulse Resp B/P (MAP) Pulse Ox O2 Delivery O2 Flow Rate FiO2 10/23/24 10:05 65 115/55 10/23/24 08:32 97.7 18 92 97.7 10/23/24 08:00 Nasal Cannula* 2 28 Intake/Output Intake and Output 10/23/24 07:00 Intake Total 1300 ml Output Total 70 ml Balance 1230 ml Intake Oral 1000 ml IV Total 300 ml Output Drainage Total 70 ml # Voids 1 Medications Current Medications Medications Dose Ordered Sig/Samantha Route Start Time Stop Time Status Last Admin Dose Admin Acetaminophen/ Hydrocodone Bitart 1 tab Q4HP PRN PO 10/19/24 09:15 10/23/24 04:59 1 TAB Ondansetron HCl 4 mg Q4HP PRN IV 10/19/24 09:15 10/19/24 11:21 4 MG Acetaminophen 650 mg Q6HP PRN PO 10/19/24 09:15 10/21/24 08:51 650 MG Morphine Sulfate 2 mg Q4HPRN PRN IV 10/19/24 09:15 10/21/24 01:52 2 MG Diagnostic Test (Pha) 1 strip Q6HR 10/19/24 12:00 10/23/24 11:31 1 STRIP Insulin Human Regular Q6HR SC 10/19/24 12:00 10/23/24 11:33 3 UNITS Dextrose 50 ml UD PRN IV 10/19/24 09:15 Piperacillin Sod/ Tazobactam Sod 100 ml @ 25 mls/hr Q8HR IV 10/19/24 14:00 10/23/24 05:00 25 MLS/HR Atenolol 25 mg DAILY PO 10/19/24 10:00 10/23/24 10:05 25 MG Levothyroxine Sodium 25 mcg DAILY PO 10/20/24 10:00 10/23/24 10:04 25 MCG Levothyroxine Sodium 100 mcg DAILY PO 10/20/24 10:00 10/23/24 10:04 100 MCG Levofloxacin/ Dextrose 100 ml @ 100 mls/hr DAILY IV 10/20/24 10:00 10/23/24 11:17 100 MLS/HR Laboratory Results Laboratory Tests 10/22/24 05:59 10/23/24 06:40 LFT Test 10/23/24 06:40 Total Bilirubin 0.8 mg/dL (0.2-1.0) Urinalysis Test 10/19/24 00:00 Urine Color Yellow (Yellow) Urine Clarity Clear (Clear) Urine pH 5.5 (5.0-9.0) Urine Specific [place] > 1.050 (1.001-1.035) Urine Protein Trace (Negative) H Urine Ketones 1+ (Negative) H Urine Blood Negative /uL (Negative) Urine Nitrite Negative (Negative) Urine Bilirubin Negative (Negative) Urine Urobilinogen Normal mg/dL (Negative) Urine Leukocyte Esterase Negative /uL (Negative) Urine RBC 1 /hpf (0 - 4) Urine Microscopic WBC 2 /HPF (0-5) Urine Squamous Epithelial Cells Few /hpf (<5) Urine Bacteria None seen /hpf (None Seen) Urine Mucus Few (None Seen) Urine Glucose Trace mg/dL (Normal) Urine Test Negative (Negative) Labs and/or images reviewed: Labs reviewed by me, Image(s) reviewed by me Assessment/Plan Assessment/Plan Sepsis secondary to acute cholecystitis: Pilo Banda, Status post lap kevin by Dr. Horta 10/22/2024 Acute abdominal pain Hypertension Hypothyroidism Consult for cardiac clearance Acute Dehydration: IV fluids MRCP ruled out any CBD stones or dilatation Social service consult for PCP: Patient wants to switch over to our medical group Plan discussed with: Patient Date of Service: Oct 23, 2024 Billing Provider: GERALDINE GASPAR MD Common Visit Codes: [id number] INP/OBS CARE(HIGH) GERALDINE GASPAR MD Oct 23, 2024 13:12
--- NOTE | 2024-10-23 15:05 | DVHPN2 ---
Progress Note Date Seen: Oct 23, 2024 Medical Necessity Reason Pt with a Central, PICC or Fol: No Objective vital signs Vital Sign Date Time Temp Pulse Resp B/P (MAP) Pulse Ox O2 Delivery O2 Flow Rate FiO2 10/23/24 13:00 98.1 55 16 122/58 (79) 95 98.1 10/23/24 08:00 Nasal Cannula* 2 28 Total Intake and Output 10/22/24 10/22/24 10/23/24 15:00 23:00 07:00 Intake Total 100 ml 300 ml 900 ml Output Total 20 ml 50 ml Balance 80 ml 300 ml 850 ml medications Current Medications Medications Dose Ordered Sig/Samantha Route Start Time Stop Time Status Last Admin Dose Admin Acetaminophen/ Hydrocodone Bitart 1 tab Q4HP PRN PO 10/19/24 09:15 10/23/24 13:25 1 TAB Ondansetron HCl 4 mg Q4HP PRN IV 10/19/24 09:15 10/19/24 11:21 4 MG Acetaminophen 650 mg Q6HP PRN PO 10/19/24 09:15 10/21/24 08:51 650 MG Morphine Sulfate 2 mg Q4HPRN PRN IV 10/19/24 09:15 10/21/24 01:52 2 MG Diagnostic Test (Pha) 1 strip Q6HR 10/19/24 12:00 10/23/24 11:31 1 STRIP Insulin Human Regular Q6HR SC 10/19/24 12:00 10/23/24 11:33 3 UNITS Dextrose 50 ml UD PRN IV 10/19/24 09:15 Piperacillin Sod/ Tazobactam Sod 100 ml @ 25 mls/hr Q8HR IV 10/19/24 14:00 10/23/24 13:25 25 MLS/HR Atenolol 25 mg DAILY PO 10/19/24 10:00 10/23/24 10:05 25 MG Levothyroxine Sodium 25 mcg DAILY PO 10/20/24 10:00 10/23/24 10:04 25 MCG Levothyroxine Sodium 100 mcg DAILY PO 10/20/24 10:00 10/23/24 10:04 100 MCG Levofloxacin/ Dextrose 100 ml @ 100 mls/hr DAILY IV 10/20/24 10:00 10/23/24 11:17 100 MLS/HR laboratory and microbiology Laboratory Tests 10/23/24 06:40 10/22/24 05:59 Test 10/22/24 05:59 Range/Units Serum Glucose 95 74-106 mg/dL Problem List/Assessment/Plan Problem List/Assessment/Plan 10/21/2563 year old female ,cholelithiasis and cholecystitis, hypothyroid, had hysterectomy, abdomen tender ruq, labs reviewed. undergoing cqardiac evaluation., laparoscopic possibly open cholecystectomy,risks and complications explained in detail 10/23/24 feels much better, wounds clean and well approximated, abdomen non distended, drainage A[place]LA[place] non bilious, will advance diet, cleared for discharge, bilirubin normal. Plan discussed with: Patient, Spouse Dietary Evaluation Review Comments: 1) If patient remains NPO > 7 days, consider EN/TPN to meet at least 75% of estimated needs 2) Advance to 60g CCHO low-fat diet when medically feasible, pending ST approval 3) Refer to outpatient RD for weight management 4) Follow-up with gastroenterology 5) Continue to monitor I&O, labs, and skin integrity Expected Outcomes/Goals: 1) patient to receive nutrition support within 7 days of NPO status 2) GI symptoms and labs to improve 3) diet to advance 4) f/u in 2-3 days MIL IRIZARRY MD Oct 23, 2024 15:05
--- NOTE | 2024-10-23 23:20 | DVHPN2 ---
Progress Note - Dictate Date Seen: Oct 23, 2024 Medical Necessity Reason Pt with a Central, PICC or Fol: No Subjective Patient was seen and evaluated in follow up. Patient is now on room air. The patient is complaining of incision site pain. Wounds are C/D/I. A[place]LAIDA draining non bilious fluid. Patient started on a soft diet. WBC 11.6. vital signs Vital Sign Date Time Temp Pulse Resp B/P (MAP) Pulse Ox O2 Delivery O2 Flow Rate FiO2 10/23/24 21:00 98.1 63 18 141/69 (93) 93 98.1 10/23/24 20:15 Room Air* 0 21 Total Intake and Output 10/22/24 10/22/24 10/23/24 15:00 23:00 07:00 Intake Total 100 ml 300 ml 900 ml Output Total 20 ml 50 ml Balance 80 ml 300 ml 850 ml medications Current Medications Medications Dose Ordered Sig/Samantha Route Start Time Stop Time Status Last Admin Dose Admin Acetaminophen/ Hydrocodone Bitart 1 tab Q4HP PRN PO 10/19/24 09:15 10/23/24 13:25 1 TAB Ondansetron HCl 4 mg Q4HP PRN IV 10/19/24 09:15 10/19/24 11:21 4 MG Acetaminophen 650 mg Q6HP PRN PO 10/19/24 09:15 10/21/24 08:51 650 MG Morphine Sulfate 2 mg Q4HPRN PRN IV 10/19/24 09:15 10/21/24 01:52 2 MG Diagnostic Test (Pha) 1 strip Q6HR 10/19/24 12:00 10/23/24 17:11 1 STRIP Insulin Human Regular Q6HR SC 10/19/24 12:00 10/23/24 17:17 3 UNITS Dextrose 50 ml UD PRN IV 10/19/24 09:15 Piperacillin Sod/ Tazobactam Sod 100 ml @ 25 mls/hr Q8HR IV 10/19/24 14:00 10/23/24 20:44 25 MLS/HR Atenolol 25 mg DAILY PO 10/19/24 10:00 10/23/24 10:05 25 MG Levothyroxine Sodium 25 mcg DAILY PO 10/20/24 10:00 10/23/24 10:04 25 MCG Levothyroxine Sodium 100 mcg DAILY PO 10/20/24 10:00 10/23/24 10:04 100 MCG Levofloxacin/ Dextrose 100 ml @ 100 mls/hr DAILY IV 10/20/24 10:00 10/23/24 11:17 100 MLS/HR objective GENERAL: Alert and oriented x 3. No acute distress. EYES: PERRL, EOMI. Anicteric. HENT: Moist mucous membranes. LUNGS: Clear to auscultation bilaterally. CARDIOVASCULAR: Regular rate and rhythm. ABDOMEN:RUQ TTP. EXTREMITIES: No edema. NEUROLOGIC: No focal neurological deficits. SKIN: Warm, dry. laboratory and microbiology Laboratory Tests 10/23/24 06:40 10/22/24 05:59 Test 10/22/24 05:59 Range/Units Serum Glucose 95 74-106 mg/dL Problem List Preprocedural cardiac evaluation. Acute cholecystitis. Hypertension. Hypothyroidism. Assessment/Plan Continued all current supportive medical care. Morphine and [place] for pain management. IV antibiotics as ordered. Additional plan as per the hospital course. Dietary Evaluation Review Comments: 1) If patient remains NPO > 7 days, consider EN/TPN to meet at least 75% of estimated needs 2) Advance to 60g CCHO low-fat diet when medically feasible, pending ST approval 3) Refer to outpatient RD for weight management 4) Follow-up with gastroenterology 5) Continue to monitor I&O, labs, and skin integrity Expected Outcomes/Goals: 1) patient to receive nutrition support within 7 days of NPO status 2) GI symptoms and labs to improve 3) diet to advance 4) f/u in 2-3 days Plan discussed with: Patient KYREE WALKER MD Oct 23, 2024 23:20
[2024-10-24] VITALS (7 sets, daily range): BP systolic 131–154; BP diastolic 69–77; PULSE 58–68; RESP 18–20; TEMP 97.9–98.3; O2SAT 93–96
--- NOTE | 2024-10-24 10:26 | DVHPN2 ---
Reviewed: Care Plan, H&P, Labs, Medications, Previous Orders, Radiology Changes from previous H/P or p: No Changes Gastrointestinal: Nausea, Vomiting, Abdominal Pain Objective Vitals Vital Signs Date Time Temp Pulse Resp B/P (MAP) Pulse Ox O2 Delivery O2 Flow Rate FiO2 10/24/24 09:18 62 154/69 10/24/24 08:47 98.1 20 93 98.1 10/23/24 20:15 Room Air* 0 21 Intake/Output Intake and Output 10/24/24 07:00 Intake Total 1500 ml Output Total 30 ml Balance 1470 ml Intake Oral 1100 ml IV Total 400 ml Output Drainage Total 30 ml # Voids 2 Medications Current Medications Medications Dose Ordered Sig/Samantha Route Start Time Stop Time Status Last Admin Dose Admin Acetaminophen/ Hydrocodone Bitart 1 tab Q4HP PRN PO 10/19/24 09:15 10/23/24 13:25 1 TAB Ondansetron HCl 4 mg Q4HP PRN IV 10/19/24 09:15 10/19/24 11:21 4 MG Acetaminophen 650 mg Q6HP PRN PO 10/19/24 09:15 10/21/24 08:51 650 MG Morphine Sulfate 2 mg Q4HPRN PRN IV 10/19/24 09:15 10/21/24 01:52 2 MG Diagnostic Test (Pha) 1 strip Q6HR 10/19/24 12:00 10/24/24 05:22 1 STRIP Insulin Human Regular Q6HR SC 10/19/24 12:00 10/24/24 05:24 2 UNITS Dextrose 50 ml UD PRN IV 10/19/24 09:15 Piperacillin Sod/ Tazobactam Sod 100 ml @ 25 mls/hr Q8HR IV 10/19/24 14:00 10/24/24 05:07 25 MLS/HR Atenolol 25 mg DAILY PO 10/19/24 10:00 10/24/24 09:18 25 MG Levothyroxine Sodium 25 mcg DAILY PO 10/20/24 10:00 10/24/24 09:19 25 MCG Levothyroxine Sodium 100 mcg DAILY PO 10/20/24 10:00 10/24/24 09:19 100 MCG Levofloxacin/ Dextrose 100 ml @ 100 mls/hr DAILY IV 10/20/24 10:00 10/24/24 09:23 100 MLS/HR Laboratory Results Laboratory Tests 10/22/24 05:59 10/23/24 06:40 Urinalysis Test 10/19/24 00:00 Urine Color Yellow (Yellow) Urine Clarity Clear (Clear) Urine pH 5.5 (5.0-9.0) Urine Specific [place] > 1.050 (1.001-1.035) Urine Protein Trace (Negative) H Urine Ketones 1+ (Negative) H Urine Blood Negative /uL (Negative) Urine Nitrite Negative (Negative) Urine Bilirubin Negative (Negative) Urine Urobilinogen Normal mg/dL (Negative) Urine Leukocyte Esterase Negative /uL (Negative) Urine RBC 1 /hpf (0 - 4) Urine Microscopic WBC 2 /HPF (0-5) Urine Squamous Epithelial Cells Few /hpf (<5) Urine Bacteria None seen /hpf (None Seen) Urine Mucus Few (None Seen) Urine Glucose Trace mg/dL (Normal) Urine Test Negative (Negative) Microbiology Microbiology Date/Time Source Procedure Growth Status 10/22/24 12:54 Gallbladder Fluid Gram Stain - Final Resulted 10/22/24 12:54 Gallbladder Fluid Anaerobic Culture - Preliminary Resulted Labs and/or images reviewed: Labs reviewed by me, Image(s) reviewed by me Assessment/Plan Assessment/Plan Sepsis secondary to acute cholecystitis: Pilo Banda, Status post lap kevin by Dr. Horta 10/22/2024 Acute abdominal pain Hypertension Hypothyroidism Consult for cardiac clearance Acute Dehydration: IV fluids MRCP ruled out any CBD stones or dilatation Tolerating regular diet and cleared for discharge by surgeon Plan discussed with: Patient My Orders Orders - GERALDINE GASPAR MD Procedure Category Date Status Time * [employer] Operator CONS 10/23/24 Transmitted Consult Date of Service: Oct 24, 2024 Billing Provider: GERALDINE GASPAR MD Common Visit Codes: [id number] INP/OBS CARE(HIGH) GERALDINE GASPAR MD Oct 24, 2024 10:26
[2024-10-24] MEDS ORDERED: LEVO500T91 PO (10:28)
[2024-10-24] MEDS ORDERED: METR-344 PO (10:28)
[2024-10-24] MEDS ORDERED: HYDR-4902 PO (10:29)
--- NOTE | 2024-10-24 10:33 | DVHDS2 ---
Discharge Summary Date of Admission Oct 19, 2024 at 09:01 Date of Discharge: Oct 24, 2024 Admitting Diagnosis Abdominal pain Wounds: Laparoscopic cholecystectomy Labs/Diagnostic Data: Laboratory Results Test 10/24/24 05:20 10/23/24 06:40 10/22/24 05:59 10/19/24 03:52 POC Glucose 160 mg/dl (70-106) White Blood Count 11.6 10^3/uL (4.4-10.8) Red Blood Count 4.73 10^6/uL (4.0-5.20) Hemoglobin 13.1 g/dL (12.2-16.2) Hematocrit 38.5 % (36.0-46.0) Mean Corpuscular Volume 81.4 fL (80.0-100.0) Mean Corpuscular Hemoglobin 27.7 pg (28.0-32.0) Mean Corpuscular Hemoglobin Concent 34.0 g/dL (32.0-36.0) Red Cell Distribution Width 14.0 % (11.8-14.3) Platelet Count 183 10^3/uL (140-450) Mean Platelet Volume 8.9 fL (6.9-10.8) Neutrophils (%) (Auto) 90.5 % (37.0-80.0) Lymphocytes (%) (Auto) 5.3 % (10.0-50.0) Monocytes (%) (Auto) 4.1 % (0.0-12.0) Eosinophils (%) (Auto) 0.0 % (0.0-7.0) Basophils (%) (Auto) 0.1 % (0.0-2.0) Neutrophils # (Auto) 10.5 10 ^3/uL (1.6-8.6) Lymphocytes # (Auto) 0.6 10 ^3/uL (0.4-5.4) Monocytes # (Auto) 0.5 10 ^3/uL (0-1.3) Eosinophils # (Auto) 0 10 ^3/uL (0-0.8) Basophils # (Auto) 0 10 ^3/uL (0-0.2) Nucleated Red Blood Cells 0.0 % Total Bilirubin 0.8 mg/dL (0.2-1.0) Prothrombin Time 13.0 sec (9.3-11.8) Prothrombin Time INR 1.25 (0.9-1.15) Activated Partial Thromboplast Time 30.0 SEC (24.5-34.5) Sodium Level 141 mmol/L (136-145) Potassium Level 3.4 mmol/L (3.5-5.1) Chloride Level 106 mmol/L (98-107) Carbon Dioxide Level 26 mmol/L (20-31) Anion Gap 9 (5-15) Blood Urea Nitrogen 12 mg/dL (9-23) Creatinine 0.73 mg/dL (0.550-1.02) Glomerular Filtration Rate Calc 91 mL/min (>90) BUN/Creatinine Ratio 16.4 (10.0-20.0) Serum Glucose 95 mg/dL (74-106) Calcium Level 9.4 mg/dL (8.7-10.4) Aspartate Amino Transferase (AST) 52 U/L (<34) Alanine Aminotransferase (ALT) 128 U/L (7-40) Alkaline Phosphatase 307 U/L (46-116) Total Protein 5.8 g/dL (5.7-8.2) Albumin 3.5 g/dL (3.2-4.8) Lactic Acid Level 1.9 mmol/L (0.4-2.0) Test 10/19/24 03:25 10/19/24 00:00 Hemoglobin A1c 5.8 % A1C (<5.7) Amylase Level 34 U/L (30-118) Lipase 26 U/L (12-53) Urine Color Yellow (Yellow) Urine Clarity Clear (Clear) Urine pH 5.5 (5.0-9.0) Urine Specific [place] > 1.050 (1.001-1.035) Urine Protein Trace (Negative) Urine Ketones 1+ (Negative) Urine Blood Negative /uL (Negative) Urine Nitrite Negative (Negative) Urine Bilirubin Negative (Negative) Urine Urobilinogen Normal mg/dL (Negative) Urine Leukocyte Esterase Negative /uL (Negative) Urine RBC 1 /hpf (0 - 4) Urine Microscopic WBC 2 /HPF (0-5) Urine Squamous Epithelial Cells Few /hpf (<5) Urine Bacteria None seen /hpf (None Seen) Urine Mucus Few (None Seen) Urine Glucose Trace mg/dL (Normal) Urine Test Negative (Negative) Other Laboratory Tests 10/23/24 06:40 10/22/24 05:59 Brief Hx & Hospital Course: Admitted for acute cholecystitis underwent laparoscopic cholecystectomy by Dr. Horta. Treated with the antibiotics and pain medications IV fluids postop course uneventful at the time of discharge vitals are stable afebrile ambulating tolerating regular diet discharged home. Cleared for discharge by surgeon. Prescription transmitted to the pharmacy she will follow up with Dr. Horta in 10 days Consults/Reason for consult Surgeon Dr. Horta Operations or Procedures Laparoscopic cholecystectomy Condition at Discharge: Fair Final Diagnosis/Problems List Sepsis secondary to acute cholecystitis: Pilo Banda, Status post lap kevin by Dr. Horta 10/22/2024 Acute abdominal pain Hypertension Hypothyroidism Consult for cardiac clearance Acute Dehydration: IV fluids MRCP ruled out any CBD stones or dilatation Discharge Disposition: Home Discharge Instruct/Medications Diet: Regular Activity: Light activity Follow Up/Referral: Use Medications as prescribed Follow up with the surgeon Dr. Horta in 10 days Medications: Transmitted to the pharmacy 39 (Time Taken for discharge summary 39 minutes) Discharge Statement: "Patient was advised to return to the ER or call 911 if any headaches, dizziness, shortness of breath, chest pain, abdominal pain, bleeding, fevers, or worsening of medical condition. Patient was counseled about treatment plan, medications, possible side effects, patientverbalized understanding. All questions were answered to the best of my ability. This discharge took greater then 30 minutes in planning, reviewing documentation, counseling the patient, and discussing with other team members." ASSESSMENT ASSESSMENT Hospital Course Improved Assessment Sepsis secondary to acute cholecystitis: Pilo Banda, Status post lap kevin by Dr. Horta 10/22/2024 Acute abdominal pain Hypertension Hypothyroidism Consult for cardiac clearance Acute Dehydration: IV fluids MRCP ruled out any CBD stones or dilatation Date of Service: Oct 24, 2024 Billing Provider: GERALDINE GASPAR MD Common Visit Codes: [id number] DISCH DAY >30min GERALDINE GASPAR MD Oct 24, 2024 10:33
--- NOTE | 2024-10-24 21:29 | DVHPN2 ---
Progress Note - Dictate Date Seen: Oct 24, 2024 Medical Necessity Reason Pt with a Central, PICC or Fol: No Subjective Patient was seen and evaluated in follow up. Patient has no new complaints at this time. Patient denies any cardiac symptoms. Patient is cardiac stable for discharge. vital signs Vital Sign Date Time Temp Pulse Resp B/P (MAP) Pulse Ox O2 Delivery O2 Flow Rate FiO2 10/24/24 12:44 97.9 65 18 137/72 (93) 93 97.9 10/24/24 08:00 Room Air* 0 N/A Nasal Cannula* Total Intake and Output 10/23/24 10/23/24 10/24/24 15:00 23:00 07:00 Intake Total 200 ml 1000 ml 300 ml Output Total 20 ml 10 ml Balance 200 ml 980 ml 290 ml medications Current Medications Medications Dose Ordered Sig/Samantha Route Start Time Stop Time Status Last Admin Dose Admin Acetaminophen/ Hydrocodone Bitart 1 tab Q4HP PRN PO 10/19/24 09:15 10/23/24 13:25 1 TAB Ondansetron HCl 4 mg Q4HP PRN IV 10/19/24 09:15 10/19/24 11:21 4 MG Acetaminophen 650 mg Q6HP PRN PO 10/19/24 09:15 10/21/24 08:51 650 MG Morphine Sulfate 2 mg Q4HPRN PRN IV 10/19/24 09:15 10/21/24 01:52 2 MG Diagnostic Test (Pha) 1 strip Q6HR 10/19/24 12:00 10/24/24 11:48 1 STRIP Insulin Human Regular Q6HR SC 10/19/24 12:00 10/24/24 05:24 2 UNITS Dextrose 50 ml UD PRN IV 10/19/24 09:15 Piperacillin Sod/ Tazobactam Sod 100 ml @ 25 mls/hr Q8HR IV 10/19/24 14:00 10/24/24 05:07 25 MLS/HR Atenolol 25 mg DAILY PO 10/19/24 10:00 10/24/24 09:18 25 MG Levothyroxine Sodium 25 mcg DAILY PO 10/20/24 10:00 10/24/24 09:19 25 MCG Levothyroxine Sodium 100 mcg DAILY PO 10/20/24 10:00 10/24/24 09:19 100 MCG Levofloxacin/ Dextrose 100 ml @ 100 mls/hr DAILY IV 10/20/24 10:00 10/24/24 09:23 100 MLS/HR objective GENERAL: Alert and oriented x 3. No acute distress. EYES: PERRL, EOMI. Anicteric. HENT: Moist mucous membranes. LUNGS: Clear to auscultation bilaterally. CARDIOVASCULAR: Regular rate and rhythm. ABDOMEN:RUQ TTP. EXTREMITIES: No edema. NEUROLOGIC: No focal neurological deficits. SKIN: Warm, dry. laboratory and microbiology Laboratory Tests 10/23/24 06:40 10/22/24 05:59 Test 10/22/24 05:59 Range/Units Serum Glucose 95 74-106 mg/dL Problem List Preprocedural cardiac evaluation. Acute cholecystitis. Hypertension. Hypothyroidism. Assessment/Plan Continued all current supportive medical care. Morphine and [place] for pain management. Atenolol. IV antibiotics as ordered. Additional plan as per the hospital course. Dietary Evaluation Review Comments: 1) If patient remains NPO > 7 days, consider EN/TPN to meet at least 75% of estimated needs 2) Advance to 60g CCHO low-fat diet when medically feasible, pending ST approval 3) Refer to outpatient RD for weight management 4) Follow-up with gastroenterology 5) Continue to monitor I&O, labs, and skin integrity Expected Outcomes/Goals: 1) patient to receive nutrition support within 7 days of NPO status 2) GI symptoms and labs to improve 3) diet to advance 4) f/u in 2-3 days Plan discussed with: Patient KYREE WALKER MD Oct 24, 2024 13:26
== END 2024-10-24 17:41 | disposition home or self-care (01) | DRG 854 ==
LOC: ER 03:05 → OVERFLOW 09:01 → WEST WING 18:16
PROVIDERS: ADMIT Family Medicine; ATTEND Family Medicine
PROC: 0FT44ZZ Resection of Gallbladder, Percutaneous Endoscopic Approach (ICD-10-PCS; principal; 2024-10-22 12:27)
DX: A41.9 Sepsis, unspecified organism (principal); K80.00 Calculus of gallbladder with acute cholecystitis without obstruction; E03.9 Hypothyroidism, unspecified; E86.0 Dehydration; I10 Essential (primary) hypertension; K42.9 Umbilical hernia without obstruction or gangrene; K57.30 Diverticulosis of large intestine without perforation or abscess without bleeding; K59.00 Constipation, unspecified; R73.9 Hyperglycemia, unspecified; E66.01 Morbid (severe) obesity due to excess calories; Z88.5 Allergy status to narcotic agent; Z90.710 Acquired absence of both cervix and uterus; Z80.49 Family history of malignant neoplasm of other genital organs; Z80.0 Family history of malignant neoplasm of digestive organs; Z79.899 Other long term (current) drug therapy; Z68.35 Body mass index [BMI] 35.0-35.9, adult
CPT/HCPCS: 36415; 71046; 74177; 74181; 76705; 80053; 81001; 81025; 82150; 82247; 82962; 83036; 83605; 83690; 85025; 85610; 85730; 86850; 86900; 86901; 87070; 87075; 87077; 87186; 87205; 93005; 93306; 96365; 96375; 99291; G0378; J0330; J1815; J1956; J2250; J2405; J2543; J2704; J3430; J3490